=== PATIENT | male | born 1955 | race Caucasian/White ===

== ENCOUNTER 2021-07-22 11:14 | Outpatient (REF) | payer MEDICARE, SELFPAY ==
[2021-07-22 13:27] LABS: Rheumatoid Factor < 15.0 IU/mL (<15.0)
[2021-07-22 13:28] LABS: Erythrocyte Sedimentation Rate 7 MM/HR (0-15)
[2021-07-22 13:54] LABS: Syphilis Screen Nonreactive (Nonreactive)
[2021-07-23 09:25] LABS: Lyme Abs Screen <0.90 index
[2021-07-23 22:25] LABS: IgA 206 mg/dL (70-320); IgG 937 mg/dL (600-1540); IgM 74 mg/dL (50-300)
== END 2021-07-22 11:15 | disposition home or self-care (01) ==
LOC: HO.LAB 11:14
PROVIDERS: PCP Family Medicine; Visit Provider Psychiatry & Neurology Neurology
DX: G62.9 Polyneuropathy, unspecified (principal)
CPT/HCPCS: 36415; 82784; 85652; 86334; 86431; 86617; 86618; 86780

== ENCOUNTER 2021-08-04 09:29 | Day surgery (SDC) | payer MEDICARE, SELFPAY ==
[2021-08-04] VITALS (7 sets, daily range): BP systolic 160–179; BP diastolic 89–100; PULSE 66–84; RESP 16–18; TEMP 36.3–36.6; O2SAT 95–98; BMI 37.1
--- NOTE | ~2021-08-04 | FL_ITS ---
EXAMINATION: XR LUMBAR PUNCTURE CLINICAL INFORMATION: Peripheral neuropathy COMPARISON: None TECHNIQUE/FINDINGS: Procedure and risks and benefits including bleeding, infection and headache were discussed with the patient and informed consent was obtained. The patient was positioned in the prone position. The left back was prepped and draped in the usual sterile fashion. The skin and soft tissues were anesthetized with 1% lidocaine plain. Left-sided interlaminar access to the spinal canal at the L3-L4 level was obtained using a 22-gauge spinal needle. Opening pressure was 15 cm of water. 8 mL of CSF fluid was removed. Initial tube demonstrated slightly blood-tinged fluid. Later tubes were clear. FLUOROSCOPY TIME: 0.5 minutes DOSE AREA PRODUCT: 6 marcelino per centimeter squared. Total dose 29 mGy. 1 saved fluoroscopic image. FL/FL guided lumbar puncture LP IMPRESSION: Fluoroscopy-guided lumbar puncture.
[2021-08-04 09:58] LABS: MANUAL DIFF FLAG NO
[2021-08-04 09:59] LABS: Basophils Percent Auto 0.5 % (0-2); Eosinophils Absolute Auto 0.2 X10*3/uL (0.0-0.4); Eosinophils Percent Auto 2.5 % (0-4); Hematocrit 45.9 % (42-52); Hemoglobin 15.1 g/dl (14.0-18.0); Lymphocytes Absolute Auto 1.8 X10*3/uL (1.2-4.9); Lymphocytes Percent Auto 29.6 % (20-40); Mean Corpuscular HGB Conc 32.9 g/dl (31.0-36.0); Mean Corpuscular Volume 91.1 fL (80-98); Mean Platelet Volume 9.6 fL (9.4-12.4); Monocytes Absolute Auto 0.6 X10*3/uL (0.1-1.2); Monocytes Percent Auto 10.1 % (2-11); Neutrophils Absolute Auto 3.4 X10*3/uL (2.0-8.3); Neutrophils Percent Auto 57.3 % (45-73); Platelet Count 220 X10*3/uL (160-400); Red Blood Count 5.04 X10*6/uL (4.60-5.80); Red Cell Distribution Width 14.2 % (11.0-16.0); White Blood Count 5.9 X10*3/uL (4.8-10.8)
[2021-08-04 10:07] LABS: Prothrombin Time 11.6 SEC (9.9-13.0)
[2021-08-04 10:09] LABS: Partial Thromboplastin Time 36.7 SEC (24.1-38.0)
[2021-08-04 13:26] LABS: CSF Appearance Bloody; CSF Tube # 1
[2021-08-04 13:32] LABS: Oligoclonal Serum Yes
[2021-08-04 13:37] LABS: Glucose CSF 57 mg/dL; Total Protein CSF 52.7 mg/dL (15-45)
[2021-08-04 14:13] LABS: Appearance CSF CLEAR
[2021-08-04 14:14] LABS: CSF Monos 10 %; CSF Tube # 4; Color CSF COLORLESS; Lymphocytes CSF 70 %; Neutrophils CSF 20 %; Red Blood Cell CSF 413 MM*3; White Blood Cell CSF 2 MM*3
--- NOTE | 2021-08-04 14:20 | HO.RADPN ---
RADIOLOGY Narrative Narrative: LP performed using 22g spinal needle at L3/L4. Opening pressure is 15 cm h2o. 8 mL of csf fluid removed.
[2021-08-08 22:02] LABS: Albumin 4.4 g/dL (3.2-4.6); Albumin, CSF 30.1 mg/dL (8.0-42.0); IgG 949 mg/dL (600-1540); IgG Synthesis Rate -3.4 mg/24 h (-9.9-3.3); IgG, CSF 2.9 mg/dL (0.8-7.7)
== END 2021-08-04 14:34 | disposition home or self-care (01) ==
PROVIDERS: Radiology Diagnostic Radiology; PCP Family Medicine; Visit Provider Psychiatry & Neurology Neurology
PROC: 009U3ZZ Drainage of Spinal Canal, Percutaneous Approach (ICD-10-PCS; CPT 62270; principal; 2021-08-04 11:00)
DX: G62.9 Polyneuropathy, unspecified (principal); M21.379 Foot drop, unspecified foot; I10 Essential (primary) hypertension; Z86.16 Personal history of COVID-19; Z79.899 Other long term (current) drug therapy
CPT/HCPCS: 36415; 62328; 82042; 82945; 83916; 84157; 85025; 85610; 85730; 87015; 87070; 87205; 89051

== ENCOUNTER 2021-10-29 10:00 | Outpatient (RCR) | payer MEDICARE, SELFPAY | END 2021-10-29 15:08 | disposition home or self-care (01) | LOC: HO.PT 10:00 | PROVIDERS: PCP Family Medicine; Visit Provider Psychiatry & Neurology Neurology | DX: G62.9 Polyneuropathy, unspecified (principal) | CPT/HCPCS: 97110; 97112; 97140; 97161; 97530 ==

== ENCOUNTER 2024-12-03 07:38 | Emergency (ER) | payer MEDICARE, SELFPAY ==
--- NOTE | ~2024-12-03 | CT_ITS ---
EXAMINATION: CT ABDOMEN AND PELVIS WITHOUT CONTRAST CLINICAL INFORMATION: Right-sided flank pain. COMPARISON: None available. TECHNIQUE: Multidetector volumetric imaging was performed from the superior aspect of the liver through the pubic symphysis. Sagittal and coronal reformatted images were obtained on the technologist's workstation. This CT examination was performed using dose optimization techniques as appropriate, variously including the following: *Automated exposure control *Adjustment of mA and/or kV according to patient size (this includes techniques or standardized protocols for targeted exams where dose is matched to indication/reason for exam; i.e. extremities or head) *Use of iterative reconstruction technique [id number] FINDINGS: LUNG BASES: There is bibasilar atelectasis and/or scarring. Mild emphysema is noted. The heart size is normal. Mild coronary artery calcification is present. LIVER, GALLBLADDER, AND BILIARY TREE: The liver is normal in size, shape, and diffusely attenuated. No focal hepatic lesion or biliary ductal dilatation is present. The gallbladder is unremarkable with no evidence of radiopaque gallstones, gallbladder wall thickening, or obvious pericholecystic inflammatory changes. PANCREAS: Unremarkable. SPLEEN: Unremarkable. ADRENAL GLANDS: Unremarkable. KIDNEYS AND URETERS: The kidneys are normal in size, lobulated contour, and normal attenuation. No hydronephrosis, hydroureter, or calculi seen. No perinephric stranding. BLADDER: Unremarkable. GASTROINTESTINAL TRACT: Scattered stool, diverticuli and gas seen throughout the colon without distention. The appendix is normal caliber. The small bowel loops in the ileocecal junction appear normal. ABDOMINAL WALL: No significant hernia is appreciated. LYMPH NODES: Normal. VASCULAR: Unremarkable. PELVIC VISCERA: Unremarkable. OSSEOUS STRUCTURES: There is mild degenerative disc changes L4-5 disc level with ventral spondylosis lower dorsal and lower lumbar spine. No aggressive lytic or sclerotic process seen. There are bilateral hip prosthesis. CT/CT abdomen pelvis wo IV con IMPRESSION: Mild constipation. Scattered colonic diverticulosis. No diverticulitis or obstruction. Fleischner guidelines were followed. Electronically signed by: Rajeev Miller MD 12/03/2024 09:31 AM [facility]
[2024-12-03 07:47] VITALS: BP 125/71; BP 152/70; PULSE 76; PULSE 93; RESP 14; TEMP 36.8; O2SAT 94; O2SAT 99; BMI 36.3
[2024-12-03 07:54] VITALS: BP 125/71; PULSE 93; RESP 14; TEMP 36.8; O2SAT 94
--- NOTE | 2024-12-03 08:13 | ED_ITS ---
HPI - Abdominal Pain General Chief Complaint: Abdominal Pain Stated Complaint: PT STS FEELS LIKE KIDNEY STONE HE HAD IN PAST Time Seen by Provider: 12/03/24 08:03 Source: patient and RN notes reviewed Mode of arrival: ambulatory Limitations: no limitations History of Present Illness ED Provider: Conchita Wolfe PA-C HPI narrative: This is a 69-year-old male, with a history of kidney stones, hypertension, and type 2 diabetes, who presents emergency department with complaints of right- sided abdominal pain. Patient reports that since yesterday he developed right- sided abdominal pain similar to the pain he has had with a kidney stone. He also reports that he has had slower urine stream. He denies any dysuria, hematuria, urinary frequency. He does experience urinary urgency. Denies any fevers. He does endorse dry heaving and nausea. He denies any chest pain. Denies any diarrhea or constipation. He states that he took 2 different types of medications this morning for pain, he believes 1 medication was with codeine, the other 1 who was a pain medication given to him from a urologist. MD elicited complaint: abdominal pain and flank pain Pertinent past history: kidney stones Onset (ago): day(s) Pain Consistency: constant Location: R flank Severity: moderate Quality: cramping and aching Radiation: R flank Migration to: no migration Exacerbating factors: nothing Relieving factors: medication Context: history of similar episodes Associated symptoms: nausea Related Data Allergies Allergy/AdvReac Type Severity Reaction Status Date / Time No Known Allergies Allergy Verified 12/03/24 07:53 Review of Systems Review of Systems Yes all other systems are reviewed and are negative Constitutional: Reports as per [facility] Social History Social History Alcohol intake: current Alcohol intake frequency: holidays/special occasions only Alcohol type: hard liquor Smoked in Last 30 Days: No Use of substances other than those prescribed or required for medical reasons: No Advance Directives: No Advance Directives Information Provided: Yes Do you have a plan to hurt others: No Plan Physical Exam ED Vital Signs: Vital Signs - 24 hr 12/03/24 07:47 12/03/24 07:54 12/03/24 09:33 Temperature 98.2 F 98.2 F Pulse Rate 93 93 Respiratory Rate 14 14 16 Blood Pressure 125/71 125/71 Pulse Oximetry 94 94 Oxygen Delivery Method Room Air Room Air 12/03/24 11:47 Temperature Pulse Rate 85 Respiratory Rate 14 Blood Pressure 111/63 Pulse Oximetry 97 Oxygen Delivery Method Room Air BMI result Body Mass Index 36.3 Const General: cooperative, comfortable and no acute distress Orientation/consciousness: patient oriented x3 Limitations: no limitations HENMT Head: Yes normal to inspection, Yes normocephalic and Yes atraumatic Ears: hearing grossly normal bilaterally General nose exam: Normal external nose present Face and sinus: Yes normal facial exam Mouth: Normal oral and palatal mucosa present, oropharynx normal and moist mucous membranes Throat: Yes posterior oropharynx normal Eyes General: appearance normal, both eyes and all related structures Eyelids: Yes eyelids normal Conjunctivae: conjunctivae normal Sclerae: sclerae normal Pupils: Equal, round and reactive pupils present EOM: EOMs intact bilaterally Neck Neck: Yes normal visual inspection, Yes full ROM and Yes no lymphadenopathy Lymphatic: no lymphadenopathy noted Chest Chest palpation & inspection: normal inspection of the chest Resp Effort & Inspection: normal respiratory effort and able to speak in complete sentences Auscultation: clear to auscultation bilaterally, no crackles, no rales, no rhonchi and no wheezes Cardio Rate: regular rate Rhythm: regular rhythm Heart sounds: S1 normal heart sound present and S2 normal heart sound present GI Other: Soft, with tenderness palpation in the right upper and right lower quadrant, no rebound or guarding. Inspection: Yes normal to inspection General: Yes no CVA tenderness Back/Spine/Pelvis Back: no CVA tenderness Skin General skin exam: no rashes or lesions noted Trauma: no lacerations or abrasions Wounds: no wounds Neuro General: patient oriented x3 and moves all extremities Cranial nerves: Yes Equal, round and reactive pupils present Extrem General: Yes normal to inspection Right upper extremity: normal to inspection Left upper extremity: normal to inspection Right lower extremity: normal to inspection Left lower extremity: normal to inspection Course Reevaluation(s) Reevaluation #1: CT scan returns, revealing mild constipation, scattered colonic diverticulosis, no diverticulitis or obstruction. Does have mild degenerative changes in the L4-L5 disc region, however no evidence of hydronephrosis, hydroureter, or calculi seen. No perinephric stranding. Still awaiting urine sample. Time: 10:14 Reevaluation #2: Urine is not infected. Postvoid reveals that patient is not retaining. Abdomen remains to be comfortable. Time: 12:59 Reevaluation #3: Patient's overall workup today is reassuring. Unclear what is causing his abdominal pain, and pain has not returned. Patient is feeling much better, given strict return precautions. He understands and agrees and agrees with plan. Patient stable for discharge. Time: 13:27 Medical Decision Making Medical Decision Making [facility] Narrative: This is a 69-year-old male who presents emergency department with concerns for right-sided abdominal pain for the last day. On arrival, vital signs within normal limits. He is speaking in full sentences under no acute distress. Patient has a history of kidney stones and states that his symptoms feel similar. Abdomen is soft, with mild tenderness palpation in the right upper and lower quadrant, no rebound or guarding. He does report that he took 2 medications, 1 with codeine, the other 1 possibly Toradol. Will medicate with morphine, and Zofran. Will also obtain blood work, EKG, CT abdomen and pelvis. Differential Diagnosis Differential Diagnoses: The differential diagnosis associated with the presentation includes Obstructive uropathy, acute cystitis, pyelonephritis, gastritis, gastroenteritis Admission/Observation Consideration of admission/observation: Escalation of care including admission/observation considered Lab Data [facility] Lab Attestation statement: I reviewed the patient's lab results. 12/03/24 08:43 12/03/24 08:43 Labs: Lab Results 12/03/24 12/03/24 12/03/24 Range/Units 08:43 12:16 12:34 WBC 3.2 L (4.8-10.8) X10*3/uL RBC 5.38 (4.60-5.80) X10*6/uL Hgb 15.7 (14.0-18.0) g/dl Hct 45.6 (42.0-52.0) % MCV 84.8 (80.0-98.0) fL MCH 29.2 (27.0-33.0) pg MCHC 34.4 (31.0-36.0) g/dl RDW 13.3 (11.0-16.0) % Plt Count 151 L (160-400) X10*3/uL MPV 8.9 L (9.4-12.4) fL Immature Gran % (Auto) 0.3 (0.0-0.4) % Neut % (Auto) 81.4 H (45-73) % Lymph % (Auto) 10.1 L (20-40) % [place] % (Auto) 7.9 (2-11) % Eos % (Auto) 0.0 (0-4) % Baso % (Auto) 0.3 (0-2) % Lymph # (Auto) 0.3 L (1.2-4.9) X10*3/uL [place] # (Auto) 0.3 (0.1-1.2) X10*3/uL Eos # (Auto) 0.0 (0.0-0.4) X10*3/uL Baso # (Auto) 0.0 (0.0-0.2) X10*3/uL Abs Immat Gran (auto) 0.01 (0.00-0.03) X10*3/uL Absolute Neuts (auto) 2.6 (2.0-8.3) x10*3/uL Absolute Nucleated RBC 0.000 (0.0-0.012) X10*3/uL Nucleated RBC % (auto) 0.0 (0.0-0.2) /100WBC Sodium 133 L (135-145) mmol/L Potassium 3.7 (3.3-5.1) mmol/L Chloride 105 (96-108) mmol/L Carbon Dioxide 19 L (22-29) mmol/L Anion Gap 13 (12-20) BUN 38 H (9-16) mg/dL Creatinine 1.20 (0.5-1.4) mg/dL Estim Creat Clear Calc 88.3 Estimated GFR 60 Random Glucose 147 H (60-115) mg/dL Calcium 8.1 L (8.4-10.2) mg/dL Magnesium 1.8 (1.6-2.6) mg/dL Total Bilirubin 0.8 (0.0-1.0) mg/dL Direct Bilirubin 0.4 (0.0-0.5) mg/dL AST 115 H (5-37) U/L ALT 97 H (0-40) U/L Alkaline Phosphatase 82 (39-117) U/L Troponin I High Sens < 2.7 < 2.7 (<3.5-35.0) ng/L Total Protein 6.8 (6.5-8.0) g/dL Albumin 3.8 (3.5-5.0) g/dL Lipase 38 (8-78) U/L Urine Color Dark Yellow Urine Appearance Clear Urine pH 6.0 (5.0-9.0) Ur Specific [place] >= 1.030 H (1.005-1.025) Urine Protein 30 (1+) H (Neg-Trace) mg/dL Urine Glucose (UA) Negative (Negative) mg/dL Urine Ketones Negative (Negative) mg/dL Urine Blood Negative (Negative) Urine Nitrite Negative (Negative) Ur Leukocyte Esterase Negative (Negative) Urine RBC 0-2 (0-2) /HPF Urine WBC 0-5 (0-5) /HPF Ur Squamous Epith Cells 0-2 (0-2) /HPF Urine Bacteria None Seen (None Seen) Hyaline Casts 6-10 (0-2) /LPF Influenza Type A (PCR) NEGATIVE (Negative) Influenza Type B (PCR) NEGATIVE (Negative) RSV RNA Qual (PCR) NEGATIVE (Negative) SARS-CoV-2 RNA (RT-PCR) NEGATIVE (Negative) Radiology Impression Discussion of test interpretation with radiology: I have reviewed the radiologist's reading. External Record Review External record reviewed: Inpatient record, Office record, Outpatient record, Prior outpatient labs, Prior outpatient radiology, Primary care record and Outside ED record Medications Administered Discontinued Medications Generic Name Dose Route Start Last Admin Trade Name Freq PRN Reason Stop Dose Admin Sodium Chloride 1,000 mls @ 999 mls/hr 12/03/24 11:54 12/03/24 11:58 Ns IV 12/03/24 12:54 999 mls/hr .Q1H1M ONE Administration Morphine Sulfate 4 mg 12/03/24 08:21 12/03/24 09:33 Morphine Sulfate 4 Mg/Ml Cartridge IVPUSH 12/03/24 08:22 4 mg ONCE ONE Administration Protocol Ondansetron HCl 4 mg 12/03/24 08:21 12/03/24 09:33 Ondansetron Hcl 4 Mg/2 Ml Vial IVPUSH 12/03/24 08:22 4 mg ONCE ONE Administration Discharge Plan Discharge Clinical Impression: Abdominal pain Patient Disposition: Home, Self-Care Instructions: Acute Abdominal Pain (ED) Additional Instructions: You were seen in the emergency department due to abdominal pain. Your workup today was reassuring. Please drink plenty of fluids get plenty of rest. Your urine does not appear to be infected. Please follow-up with your primary care physician regarding this visit. Your CT scan does not show any kidney stones. You do have mild constipation. If any new or worsening symptoms occur including but not limited to severe chest pain, severe abdominal pain, shortness of breath, please seek emergent care. Print Language: Tajik
--- OUTSIDE RECORDS SUMMARY | 2024-12-03 08:21 | XMS_ITS | Continuity of Care Document ---
Author Organization [facility] Galindo Nathan lt Address [address] [place] [address]- Care Team Providers Care Director Of Operations For Therapy Name Role Phone Kristina LY, Eugene Carter Primary Care Physician [phone] Encounter [facility] Date(s): 10/22/24 - 11/21/24 [facility] Adult [address] [place] [address]- Referring Physician: Lux Hensley Encounter Type: Triage Allergies, Adverse Reactions, Alerts No Known Allergies Immunizations Given and Recorded Vaccine Date Status Refusal Reason influenza virus vaccine, inactivated 1 10/19/23 Gi selina influenza virus vaccine, inactivated 09/08/21 Give n influenza virus vaccine, inactivated 2 09/25/20 Gi selina influenza virus vaccine, inactivated 09/04/19 Give n influenza virus vaccine, inactivated 10/02/18 Give n influenza virus vaccine, inactivated 3 08/29/17 Gi selina influenza virus vaccine, inactivated 09/24/16 Brett rded influenza virus vaccine, inactivated 12/05/15 Brett rded pneumococcal 23-valent vaccine 4 04/08/22 Given SARS-CoV-2 (COVID-19) mRNA BNT-162b2 vac 12/15/21 Recorded SARS-CoV-2 (COVID-19) mRNA BNT-162b2 vac 03/11/21 Given SARS-CoV-2 (COVID-19) mRNA BNT-162b2 vac 02/18/21 Given pneumococcal 13-valent vaccine 11/19/20 Given tetanus/diphtheria/pertussis, acel(Tdap) 08/29/17 Given 1Result Comment: questionaire complete 2Result Comment: [facility]-[id number] 3Result Comment: [08/29/2017] [facility] [id number] 4Result Comment: [id number] Medications aspirin 81 mg oral tablet, chewable 81 mg, 1, tablet, By Mouth, Daily, # 30 tablet, Refills 0, Tot. Refills 0, Maintenance, 03/26/24 6:14:00 PM EDT, Do Not Route, Partial fill upon patient request if the prescription is for a schedule II opioid drug. Start Date: 03/26/24 Status: Ordered Quantity: 30.0 Unit: tablet Repeat number: 1 atorvastatin 20 mg oral tablet 1 tablet, By Mouth, Daily at bedtime, # 90 tablet, 1 Refills, Maintenance, 08/24/24 12:59:00 PM EDT,[id number], 196, cm, 06/28/24 12:55:00 EDT, Height, 141.7, kg, 05/14/24 8:24:00 EDT, Dry Weight Start Date: 08/24/24 Status: Ordered Quantity: 90.0 Unit: tablet Repeat number: 1 hydrochlorothiazide-lisinopril 25 mg-20 mg oral tablet See Instructions, TAKE 1 TABLET BY MOUTH EVERY DAY, # 90 tablet, 1 Refills, Maintenance, 08/10/24 4:22:00 PM EDT, [facility]/pharmacy #[id number], 90, TAKE 1 TABLET BY MOUTH EVERY DAY, 196, cm, 06/28/24 12:55:00 EDT, Height, 141.7, kg, 05/14/24 8:24:00 EDT, Dry Weight Start Date: 08/10/24 Status: Ordered Quantity: 90.0 Unit: tablet Repeat number: 2 LORazepam 1 mg oral tablet 1 tablet = 1 mg, By Mouth, Daily at bedtime, PRN Insomnia, # 30 tablet, 5 Refills, Acute 02/07/25 4:00:00 PM EDT, 08/10/24 4:00:00 PM EDT, [facility]/pharmacy #[id number], Partial fill upon patient request if the prescription is for a schedule II opioid drug., 196, cm, 06/28/24 12:55:00 EDT, Height, 141.7, kg, 05/14/24 8:24:00 EDT, Dry Weight Start Date: 08/10/24 Stop Date: 3/13/25 Status: Ordered Quantity: 30.0 Unit: tablet Repeat number: 6 metoprolol 25 mg oral tablet, extended release 25 mg, 1, tablet, By Mouth, Daily, # 90 tablet, Refills 3, Tot. Refills 3, Maintenance, 03/26/24 6:15:00 PM EDT, [id number] Partial fill upon patient requestif the prescription is for a schedule II opioid drug., 196, cm, 03/15/24 13:04:00 EDT, Height, 138,kg, 02/17/24 13:00:00 EDT, Dry Weight Start Date: 03/26/24 Status: Ordered Quantity: 90.0 Unit: tablet Repeat number: 4 Mounjaro 5 mg/0.5 mL subcutaneous solution = 5 mg, Subcutaneous Injection, Every week, For type 2 DM, A1c 6.5%; rotate injection sites, # 4 each, 3 Refills, Maintenance, 10/05/24 10:24:00 AM EST, Solution, [facility]/pharmacy #[id number], Partial fill uponpatient request if the prescription is for a schedule II opioid drug., 196, cm, 09/12/24 15:22:00 EDT, Height, 141.7, kg, 05/14/24 8:24:00 EDT, Dry Weight Start Date: 10/05/24 Status: Ordered Quantity: 4.0 Unit: each Repeat number: 4 nitroglycerin 0.3 mg sublingual tablet 1 tablet = 0.3 mg, Sublingual, Every 5 minutes, PRN as needed for chest pain, not to exceed 3 doses/15 min--if pain persists, seek medical attention, # 100 tablet, 2 Refills, Maintenance, 04/02/24 10:10:00 AM EDT, Tablet, [facility]/pharmacy #[id number], Partial fill upon patient request if the prescription is for a schedule II opioid drug., 196, cm, 04/02/24 10:02:00 EDT, Height, 138, kg, 02/17/24 13:00:00 EDT, Dry Weight Start Date: 04/02/24 Status: Ordered Quantity: 100.0 Unit: tablet Repeat number: 3 Zepbound 2.5 mg/0.5 mL subcutaneous solution = 2.5 mg, Subcutaneous Injection, Every week, rotate injection sites, # 4 each, 3 Refills, Maintenance, 10/29/24 4:22:00 AM EST, [facility], [id number], Partial fill upon patient request if the prescription is for a schedule II opioid drug., 196, cm, 09/12/24 15:22:00 EDT, Height, 141.7, kg, 05/14/24 8:24:00 EDT, Dry Weight Start Date: 10/29/24 Status: Ordered Quantity: 4.0 Unit: each Repeat number: 4 Zepbound 2.5 mg/0.5 mL subcutaneous solution = 2.5 mg, Subcutaneous Injection, Every week, rotate injection sites, # 4 each, 2 Refills, Maintenance, 09/12/24 3:37:00 PM EDT, [facility], [id number], Partial fill upon patient request if theprescription is for a schedule II opioid drug., 196, cm, 09/12/24 15:22:00 EDT, Height, 141.7, kg, 05/14/24 8:24:00 EDT, Dry Weight Start Date: 09/12/24 Status: Ordered Quantity: 4.0 Unit: each Repeat number: 3 Problem List Condition Confirmation Course Effective Dates Status H ealth Status Informant ADHD (attention deficit hyperactivity disorder) Confirmed Active Cervical radiculopathy Confirmed Active COVID-19 virus infection Confirmed Active Hyperlipidemia Confirmed Active Hypertension Confirmed Active Insomnia Confirmed Active Kidney stone Confirmed Active Obesity Confirmed Active Osteoarthritis Confirmed Active Sciatica of right side Confirmed Active Severe obesity (BMI 35.0-39.9) with comorbidity Confirmed Active Social History Social History Type Response Smoking Status Former smoker, quit more than 30 days ago entered on: 02/06/24 Sex Sex Representation Male (finding) Patient Care team information Care Team Personnel Name: Bita Walker RN Position: [facility] RN Member Role: Primary Care Nurse Name: Maria Del Carmen Gordillo RN Position: [facility] RN Member Role: Primary Care Nurse Name: Yenny Morales RN Position: [facility] RN Member Role: Primary Care Nurse Name: Lyly Piña RN Position: [facility] [place] Nurse Member Role: Primary Care Nurse Name: Cathy Romo RN Position: [facility] RN Supv Member Role: Primary Care Nurse Name: Lobo Smith RN Position: [facility] RN Member Role: Primary Care Nurse Name: Eugene Acevedo MD Position: [facility] Physician - Primary Care Member Role: PCP Address: [address] [place] [address]- Telecom: Name: Lux Hensley Position: [facility] Outreach Member Role: [employer] Physician Name: Sharifa Shell RN Position: [facility] RN Member Role: Primary Care Nurse Name: Nia Garcia RN Position: [facility] OB RN Member Role: Primary Care Nurse Name: Magdi Kumar RN Position: [facility] SN RN Member Role: Primary Care Nurse Care Team Related Persons Name: DARIEL MAK Insurance Providers Guarantor name: [facility] Health Plan Information #: 1 Payer: MEDICARE PART B OUTPT Member Number: NA Policy Number: NA Group Number: NA Health Plan Information #: 2 Payer: MEDEX Member Number: NA Policy Number: NA Group Number: NA
--- OUTSIDE RECORDS SUMMARY | 2024-12-03 08:21 | XMS_ITS | Continuity of Care Document ---
Author Organization [facility] Bill Medley Nathan lt Address [address] [place] [address]- Care Team Providers Care Lockmaker Name Role Phone Kristina LY, Eugene Carter Primary Care Physician Encounter [facility] Date(s): 10/11/24 - 11/10/24 [facility] Bill Medley Adult [address] [place] [address]- Encounter Type: Triage Allergies, Adverse Reactions, Alerts [...] Given 1Result Comment: questionaire complete 2Result Comment: [facility]-[id number] 3Result Comment: [08/29/2017] [facility] [id number] 4Result Comment: [id number] Medications aspirin 81 mg oral tablet, chewable [...] Refills, Maintenance, 08/24/24 12:59:00 PM EDT[id number], 196, cm, 06/28/24 12:55:00 EDT, Height, 141.7, kg, 05/14/24 8:24:00 EDT, Dry Weight Start Date: 08/24/24 Status: Ordered Quantity: 90.0 Unit: tablet Repeat number: 1 hydrochlorothiazide-lisinopril 25 mg-20 mg oral tablet See Instructions, TAKE 1 TABLET BY MOUTH EVERY DAY, # 90 tablet, 1 Refills, Maintenance, 08/10/24 4:22:00 PM EDT, [facility]/pharmacy #[id number], 90, TAKE 1 TABLET BY MOUTH [...] 4:00:00 PM EDT, 08/10/24 4:00:00 PM EDT, [facility]/pharmacy #[id number], Partial fill upon patient request if [...] 6:15:00 PM EDT, [id number] fill upon patient requestif the [...] Refills, Maintenance, 10/05/24 10:24:00 AM EST, Solution, [facility]/pharmacy #[id number], Partial fill uponpatient request if the [...] Refills, Maintenance, 04/02/24 10:10:00 AM EDT, Tablet, [facility]/pharmacy #[id number], Partial fill upon patient request if [...] Team Personnel Name: Bita Walker RN Position: [facility] RN Member Role: Primary Care Nurse Name: Maria Del Carmen Gordillo RN Position: [facility] RN Member Role: Primary Care Nurse Name: Yenny Morales RN Position: [facility] RN Member Role: Primary Care Nurse Name: Lyly Piña RN Position: [facility] [place] Nurse Member Role: Primary Care Nurse Name: Cathy Romo RN Position: [facility] RN Supv Member Role: Primary Care Nurse Name: Lobo Smith RN Position: [facility] RN Member Role: Primary Care Nurse Name: Eugene Acevedo MD Position: [facility] Physician - Primary Care Member Role: PCP Address: [address] [place] [address]- Telecom: Name: Lux Hensley Position: [facility] Outreach Member Role: [employer] Consult[employer] Physician Name: Sharifa Shell RN Position: [facility] RN Member Role: Primary Care Nurse Name: Nia Garcia RN Position: [facility] OB RN Member Role: Primary Care Nurse Name: Magdi Kumar RN Position: [facility] SN RN Member Role: Primary Care Nurse Care Team Related Persons Name: DARIEL MAK Insurance Providers Guarantor name: [facility] Health Plan Information #: 1 Payer: MEDICARE PART B OUTPT Member Number: NA Policy Number: NA Group Number: NA Health Plan Information #: 2 Payer: MEDEX Member Number: NA Policy Number: NA Group Number: NA
--- OUTSIDE RECORDS SUMMARY | 2024-12-03 08:21 | XMS_ITS | Patient Health Record ---
Author Organization [facility] Address [address] [place] [address] Care Team Providers Care Processing Manager Name Role Phone Eugene Acevedo MD Primary Care Provider Unava ilable Black, Nikki Unavailable [phone] Allergies No Known Allergies Results Component Value Reference Range Notes HEMOGLOBIN A1C (GLYCOHEMOGLO BIN) Reviewed date:09/17/2024 01:22:36 PM Interpretation: Performing Lab: Notes/Report: TOTAL HEMOGLOBIN (HGBA1C) 6.5 Reason For Referral No Information Medications Medication SIG (Take, Route, Frequency, Duration) Notes Start Date End Date Status Terbinafine HCl 250 MG 1 tablet Orally O nce a day for 7 days then stop for 3 weeks repeat cycle for 90 days 04/12/2022 Not-Taking Amoxicillin 500 MG 1 capsule Orally Not-Taking Extra Depth Orthopedic Shoes (1 Pair) with Customized Heat Molded Multidensity Innersoles (3 Pair) as directed Dx: NIDDM (E11.9), Hammertoe Foot Deformity (M20.41,M20.42), Preulcerative Skin Lesion(s) (L85.1) 09/17/2024 Active Ciclopirox Olamine 0.77 % 1 application to affected area Externally Twice a day for 30 days 03/30/2018 Not-Taki vinny Physical Therapy . . . 2-3x/week for 3- 4 weeks Active LORazepam 2 MG 1 tablet at bedtime as needed Orally Once a day Active Lisinopril 20 MG 1 tablet Orally Once a day Active Atorvastatin Calcium 20 MG 1 tablet Orally Once a day Active Social History Tobacco Use: Social History Observation Description Date Details (start date - stop date) Former Smoker NA - NA Tobacco Use/Smoking Question Answer Notes Are you a: former smoker Additional Findings: Tobacco Non-User Current no n-smoker Alcohol Screen Question Answer Notes Did you have a drink contain ing alcohol in the past year? Yes How often did you have a dri nk containing alcohol in the past year? 2 to 4 times a month (2 points) Points 2 Interpretation Negative Tobacco use other than smoking: Question Answer Notes Are you an other tobacco user? No Problems Problem Type SNOMED Code ICD Code Onset Dates Problem Status W/U Status Risk Notes Problem Acquired hammer toe of right foot (726701829509291 5) Other hammer toe(s) (acquired), right foot (M20.41) Active confirmed Problem Acquired hammer toe of left foot (343824863354882 3) Other hammer toe(s) (acquired), left foot (M20.42) Active confirmed Problem Type II diabetes mellitus without complication (152261083) Type 2 diabetes mellitus without complications (E11.9) Active confirmed Problem 30863115 Unsteady gait (R26.81) Active confirmed Problem Essential hypertension (52792218) Essential hypertension (I10) Active confirmed Vital Signs Blood pressure diastolic 71 mm Hg 09/17/2024 Height 6ft 5in in 09/17/2024 Blood pressure systolic 111 mm Hg 09/17/2024 Weight 308 lbs 09/17/2024 BMI 36.52 kg/m2 09/17/2024 Procedures Procedure Date Ordered Date Performed Result Body Sit e 90379-LXVDBDD NAIL, 1-5 03/19/2024 N/A 50315-HBLWVMK NAIL, 1-5 09/17/2024 N/A Encounters Encounter Location Date Provider Diagnosis [facility] [address] [address] 03/19/2024 Nikki Black Tinea unguium B35.1 ; Foot drop, left M21.372 ; Pain in left toe(s) M79.675 ; Pain in right toe(s) M79.674 ; Foot drop, right foot M21.371 and Unsteady gait R26.81 [facility] [address] [address] 09/17/2024 Nikki Black Tinea unguium B35.1 ; Foot drop, left M21.372 ; Pain in left toe(s) M79.675 ; Pain in right toe(s) M79.674 ; Foot drop, right foot M21.371 ; Unsteady gait R26.81 ; Type 2 diabetes mellitus without complications E11.9 ; Other hammer toe(s) (acquired), right foot M20.41 and Other hammer toe(s) (acquired), left foot M20.42 Assessments Encounter Date Diagnosis (ICD Code) Assessment Notes Treatment Notes Treatment Clinical Notes Section Notes 03/19/2024 Tinea unguium (ICD-10 - B35.1) 09/17/2024 Tinea unguium (ICD-10 - B35.1) 03/19/2024 Foot drop, left (ICD-10 - M21.372) 03/19/2024 Pain in left toe(s) (ICD-10 - M79.675) 09/17/2024 Pain in left toe(s) (ICD-10 - M79.675) 09/17/2024 Foot drop, left (ICD-10 - M21.372) 09/17/2024 Pain in right toe(s) (ICD-10 - M79.674) 03/19/2024 Pain in right toe(s) (ICD-10 - M79.674) 03/19/2024 Foot drop, right foot (ICD-10 - M21.371) 09/17/2024 Foot drop, right foot (ICD-10 - M21.371) 09/17/2024 Unsteady gait (ICD-10 - R26.81) 03/19/2024 Unsteady gait (ICD-10 - R26.81) 09/17/2024 Type 2 diabetes mellitus without complications (ICD-10 - E11.9) 09/17/2024 Other hammer toe(s) (acquired), right foot (ICD-10 - M20.41) Patient Educated with: DIABETIC FOOT CARE INSTRUCTIONS.p df (DIABETIC FOOT CARE INSTRUCTIONS.p df) 09/17/2024 Other hammer toe(s) (acquired), left foot (ICD-10 - M20.42) Plan Of Treatment Pending Test Test Name Order Date [id number]-GUOQZRD NAIL, 6 OR MORE 04/12/2022 15138-BBJXNWN NAIL, 6 OR MORE 11/01/2022 55907-PZSKBEW NAIL, 6 OR MORE 03/10/2023 31901-PKTCTOG NAIL, 6 OR MORE 09/15/2023 02089-EFPFEQY NAIL, 1-5 03/19/2024 72874-VXTESYE NAIL, 1-5 09/17/2024 Next Appt Details Provider Name:Nikki Vigil , 03/18/2025 01:00:00 PM, [address] [place], [address], Insurance Providers Payer Name Payer Address Payer Phone Subscriber Number Group Number Insured Name Patient Relationship to Insured Coverage Start Date Coverage End Date Medicare National [employer] [address] [place] [address] [id number] Nicolas Cano Self - patient is the insured [employer] Blue Shield [address] [place] [address] [phone] [id number] Nicolas Cano Self - patient is the insured Medical (General) History Medical History History ICD Code Back,Hip,and Knee pain Gall bladder problems Measles Mumps Chicken pox Joint implants/screws CAD (Cholesterol) covid-19 High blood pressure Diabetic Surgical History Surgery Date(Month/Year) 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
--- OUTSIDE RECORDS SUMMARY | 2024-12-03 08:21 | XMS_ITS | Continuity of Care Document ---
Author Organization [facility] Galindo Nathan lt Address [address] [place] [address]- Care Team Providers Care Skein Winder Name Role Phone Kristina LY, Eugene Carter Primary Care Physician [phone] Encounter [facility] Date(s): 10/16/24 - 11/15/24 [facility] Bill [place] Adult [address] [place] [address]- Encounter Type: Triage Allergies, Adverse Reactions, Alerts [...] Given 1Result Comment: questionaire complete 2Result Comment: [facility]-[id number] 3Result Comment: [08/29/2017] [facility] [id number] 4Result Comment: [id number] Medications aspirin 81 mg oral tablet, chewable [...] Refills, Maintenance, 08/24/24 12:59:00 PM EDT[facility], 196, cm, 06/28/24 12:55:00 EDT, Height, 141.7, kg, 05/14/24 8:24:00 EDT, Dry Weight Start Date: 08/24/24 Status: Ordered Quantity: 90.0 Unit: tablet Repeat number: 1 hydrochlorothiazide-lisinopril 25 mg-20 mg oral tablet See Instructions, TAKE 1 TABLET BY MOUTH EVERY DAY, # 90 tablet, 1 Refills, Maintenance, 08/10/24 4:22:00 PM EDT, [facility]/pharmacy #[id number], 90, TAKE 1 TABLET BY [...] 4:00:00 PM EDT, 08/10/24 4:00:00 PM EDT, [id number], Partial fill upon patient request if the prescription is for a schedule II opioid drug., 196, cm, 06/28/24 12:55:00 EDT, Height, 141.7, kg, 05/14/24 8:24:00 EDT, Dry Weight Start Date: 08/10/24 Stop Date: 02/07/25 Status: Ordered Quantity: 30.0 Unit: tablet Repeat number: 6 metoprolol 25 mg oral tablet, extended release 25 mg, 1, tablet, By Mouth, Daily, # 90 tablet, Refills 3, Tot. Refills 3, Maintenance, 03/26/24 6:15:00 PM EDT, Route to Pharmacy Electronically, [facility]/pharmacy #[id number], Partial fill upon patient requestif the [...] Refills, Maintenance, 10/05/24 10:24:00 AM EST, Solution, [facility]/pharmacy #[id number], Partial fill uponpatient request if [...] Refills, Maintenance, 04/02/24 10:10:00 AM EDT, Tablet, [facility]/pharmacy #[id number], Partial fill upon patient request [...] Team Personnel Name: Bita Walker RN Position: [facility] RN Member Role: Primary Care Nurse Name: Maria Del Carmen Gordillo RN Position: [facility] RN Member Role: Primary Care Nurse Name: Yenny Morales RN Position: [facility] RN Member Role: Primary Care Nurse Name: Lyly Piña RN Position: [facility] [place] Nurse Member Role: Primary Care Nurse Name: Cathy Romo RN Position: [facility] RN Supv Member Role: Primary Care Nurse Name: Lobo Smith RN Position: [facility] RN Member Role: Primary Care Nurse Name: Eugene Acevedo MD Position: [facility] Physician - Primary Care Member Role: PCP Address: [address] [place] [address] [place] [address]- Telecom: Name: Lux Hensley Position: [facility] Outreach Member Role: Lifetime Consulting Physician Name: Sharifa Shell RN Position: [facility] RN Member Role: Primary Care Nurse Name: Nia Garcia RN Position: [facility] OB RN Member Role: Primary Care Nurse Name: Magdi Kumar RN Position: [facility] SN RN Member Role: Primary Care Nurse Care Team Related Persons Name: DARIEL MAK Insurance Providers Guarantor name: CLAIRE JONNYANNALEE Health Plan Information #: 1 Payer: MEDICARE PART B OUTPT Member Number: NA Policy Number: NA Group Number: NA Health Plan Information #: 2 Payer: MEDEX Member Number: NA Policy Number: NA Group Number: NA
--- OUTSIDE RECORDS SUMMARY | 2024-12-03 08:21 | XMS_ITS ---
Author Organization [facility] Johnnie Medley Address [address] [place] [address] Care Team Providers Care Bore Miner Operator Name Role Phone Kristina LY, Eugene Primary Care Provider Unava ilNikki Garcia [phone] Encounters Encounter Location Date Provider Diagnosis [address] [address] 03/15/2024 Nikki Vigil Plan Of Treatment Next Appt Details Provider Name:Nikki Vigil , 03/18/2025 01:00:00 PM, [address] [place] [address], [phone], Progress Notes * Nicolas MAK DDOB:[birth year] (69 yo M)Acc No.[id number]:03/15/2024 Progress Note Patient:?Nicolas MAK Provider:?Nikki Vigil DPM :1955???Age:68 Y???Sex:Male Dung e:03/15/2024 Address:[address] [place], [place] [id number] Pcp:Eugene Acevedo MD Subjective: * Chief Complaints: * ??? * Medical History:? Objective: * Vitals:? Assessment: Plan: * Treatment: * Images: * The named appointment provid er may or may not be the originator of this progress note, and it is not deemed complete until electronically signed by the appointment provider. Sign off status: Pending * Provider:Curtis Vigil DPM Date:?2023 Generated for Porfirio casillas/Roshan/Lucía on:?12/03/2024 08:21 AM EST
--- OUTSIDE RECORDS SUMMARY | 2024-12-03 08:21 | XMS_ITS | Continuity of Care Document ---
Author Organization [facility] Bill Medley Nathan lt Address [address] [place] [address]- Care Team Providers Care Electrical Assembly Technician Name Role Phone Kristina LY, Eugene Carter Primary Care Physician Encounter [facility] Date(s): 10/09/24 - 11/08/24 [facility] Bill [place] Adult [address] [place] [address]- Encounter Type: Triage Allergies, Adverse Reactions, Alerts [...] Given 1Result Comment: questionaire complete 2Result Comment: [facility]-[id number] 3Result Comment: [08/29/2017] [facility] [id number] 4Result Comment: [id number] Medications aspirin 81 mg oral tablet, chewable [...] Refills, Maintenance, 08/24/24 12:59:00 PM EDT,[facility], 196, cm, 06/28/24 12:55:00 EDT, Height, 141.7, kg, 05/14/24 8:24:00 EDT, Dry Weight Start Date: 08/24/24 Status: Ordered Quantity: 90.0 Unit: tablet Repeat number: 1 hydrochlorothiazide-lisinopril 25 mg-20 mg oral tablet See Instructions, TAKE 1 TABLET BY MOUTH EVERY DAY, # 90 tablet, 1 Refills, Maintenance, 08/10/24 4:22:00 PM EDT, [facility]/pharmacy #[id number], 90, TAKE 1 TABLET BY [...] 4:00:00 PM EDT, 08/10/24 4:00:00 PM EDT, [facility]/pharmacy #[id number], Partial fill upon patient request [...] 6:15:00 PM EDT, [id number] Partial fill upon patient requestif [...] Refills, Maintenance, 10/05/24 10:24:00 AM EST, Solution, [facility]/pharmacy #[id number], Partial fill uponpatient request if [...] Refills, Maintenance, 04/02/24 10:10:00 AM EDT, Tablet, [facility]/pharmacy #[id number], Partial fill upon patient request [...] Team Personnel Name: Bita Walker RN Position: [facility] RN Member Role: Primary Care Nurse Name: Maria Del Carmen Gordillo RN Position: [facility] RN Member Role: Primary Care Nurse Name: Yenny Morales RN Position: [facility] RN Member Role: Primary Care Nurse Name: Lyly Piña RN Position: [facility] [place] Nurse Member Role: Primary Care Nurse Name: Cathy Romo RN Position: [facility] RN Supv Member Role: Primary Care Nurse Name: Lobo Smith RN Position: [facility] RN Member Role: Primary Care Nurse Name: Eugene Acevedo MD Position: [facility] Physician - Primary Care Member Role: PCP Address: [address] [place] [address]- Telecom: Name: Lux Hensley Position: [facility] Outreach Member Role: Lifetime Consulting Physician Name: Sharifa Shell RN Position: [facility] RN Member Role: Primary Care Nurse Name: Nia Garcia RN Position: [facility] OB RN Member Role: Primary Care Nurse Name: Magdi Kumar RN Position: [facility] SN RN Member Role: Primary Care Nurse Care Team Related Persons Name: DARIEL MAK Insurance Providers Guarantor name: [facility] Health Plan Information #: 1 Payer: MEDICARE PART B OUTPT Member Number: NA Policy Number: NA Group Number: NA Health Plan Information #: 2 Payer: [employer] Member Number: NA Policy Number: NA Group Number: NA
--- OUTSIDE RECORDS SUMMARY | 2024-12-03 08:21 | XMS_ITS ---
Author Organization [facility] Johnnie maryjo Galindo Address [address] [place] [address] Care Team Providers Care Enamel Shader Name Role Phone Eugene Acevedo MD Primary Care Provider Unava ilable Black, Nikki Unavailable [phone] Allergies No Known Allergies REASON FOR VISIT Painful Nail(s) aggrevated by shoes and causing difficulty standing/walking., Foot pain Medications Medication SIG (Take, Route, Frequency, Duration) Notes Start Date End Date Status Lisinopril 20 MG 1 tablet Orally Once a day Active LORazepam 2 MG 1 tablet at bedtime as needed Orally Once a day Active Amoxicillin 500 MG 1 capsule Orally Not-Taking Terbinafine HCl 250 MG 1 tablet Orally O nce a day for 7 days then stop for 3 weeks repeat cycle for 90 days 04/12/2022 Not-Taking Ciclopirox Olamine 0.77 % 1 application to affected area Externally Twice a day for 30 days 03/30/2018 Not-Taking Atorvastatin Calcium 20 MG 1 tablet Orally Once a day Active Physical Therapy . . . 2-3x/week for 3- 4 weeks Active Social History Tobacco Use: Social History [...] Problem Status W/U Status Risk Notes Problem [id number] Unsteady gait (R26.81) Active confirmed Vital Signs Height 6ft 5in in 03/19/2024 Weight 302 lbs 03/19/2024 BMI 35.81 kg/m2 03/19/2024 Blood pressure systolic 120 mm Hg 03/19/20 24 Blood pressure diastolic 80 mm Hg 024 Procedures Procedure Date Ordered Date Performed Result Body Sit e 70986-ZEUNRHP NAIL, 1-03/19/2024 N/A Encounters Encounter Location Date Provider Diagnosis [facility] [employer] [address] [place] [address] 03/19/2024 Nikki Vigil Tinea unguium B35.1 ; Foot drop, left M21.372 ; Pain in left toe(s) M79.675 ; Pain in right toe(s) M79.674 ; Foot drop, right foot M21.371 and Unsteady gait R26.81 Assessments Encounter Date Diagnosis (ICD Code) Assessment Notes Treatment Notes Treatment Clinical Notes Section Notes 03/19/2024 Tinea unguium (ICD-10 - B35.1) 03/19/2024 Foot drop, left (ICD-10 - M21.372) 03/19/2024 Pain in left toe(s) (ICD-10 - M79.675) 03/19/2024 Pain in right toe(s) (ICD-10 - M79.674) 03/19/2024 Foot drop, right foot (ICD-10 - M21.371) 03/19/2024 Unsteady gait (ICD-10 - R26.81) Plan Of Treatment Medication Medication Name Sig Start Date Stop Date Notes Physical Therapy . . . 2-3x/week for 3-4 weeks Pending Test Test Name Order Date 08601-[id number] NAIL, -03/19/2024 Next Appt Details Follow Up: 6 Months, Reason: Provider Name:Nikki Nguyen Musa , 03/18/2025 01:00:00 PM, [address] [place], [address], Procedure Notes * Category Sub-Category Detail Notes Debride Nails 1-5 Procedure: Nail debrideme nt performed extensively to reduce/remove overall nail length, girth, thickness, subungual debris, and necrotic tissue, by manual and electrical means through the use of a nail nipper and/or dremel, to more viable healthy nail plate or bed tissue 1-5. Silver nitrate used for any petechial bleeding as necessary. Patient chooses, no pharmaceutical tx (54968) Progress Notes * Nicolas MAK DDOB:[birth year] (68 yo M)Acc No.[id number]:03/19/2024 Progress Note Patient:?Nicolas Mak Provider:?Nikki Vigil DPM :1955???Age:68 Y???Sex:Male Dung e:03/19/2024 Address:[address] [place] [address] Pcp:Eugene Aecvedo MD Subjective: * Chief Complaints: * ???Painful Nail(s) aggrevate d by shoes and causing difficulty standing/walking.Foot pain * HPI: ???Painful Nails:?Pt States Last PCP Visit:?Date:?02/24/2024 ?Treatments:?Lamisil Oral Antifungal?.?Foot Pain:?Nature:?unsteady gait/balance.?Location:?B/L.?Duration:?, several months.?Course:?worse.?Aggrevated:?standing , walking.?Treatments:?b/l AFO's.?Severity/Quality:?moderate , severe.? * ROS:?General/Constitutional:?Nausea?denies.?Vomiting?denies.?Hunger Thirst?denies.?Loss appetite?denies.?Chills?denies.?Fatigue?denies.?Fever?denies.?Night Sweats?denies.?Unexplained weight loss?denies.?Unexplained weight gain?denies.?HEENTM:?Dentures?denies.?Dizziness?denies.?Glasses/contacts?denies.?Retinopathy?de nies.?Blurred/double vision?denies.?TMJ?denies.?Discharge/drainage?denies.?Implants?denies.?Sore throat?denies.?Dental implants?admits.?Hard of hearing ?denies.?Difficulty chewing/swallowing/speaking?denies.?Nose bleeds?denies.?Sore mouth?denies.?Respiratory:?On Oxygen?denies.?Pneumonia/pleurisy?denies.?Bronchitis?denies.?Emphysema?denies.?C oughing?denies.?Cough blood?denies.?Shortness of breath?denies.?Wheezing?denies.?Cardiovascular:?Pacemaker?denies.?MVP?denies.?WPW?denies.?CHF?denies.?Heart attack?denies.?Septal defect?denies.?Rapid beat?denies.?Chest pain ?denies.?Atrial Fib.?denies.?Murmur/Palpitations?denies.?Gastrointestinal:?Hemorrhoids?denies.?Stomach/Abdominal pain?denies.?Dark blood stool?denies.?Irritable bowel ?denies.?Constipation?denies.?Diarrhea?denies.?Hematology:?Swelling?denies.?Clots?denies.?Varicose Veins?admits.?Bruising?denies.?Bleeding problem?denies.?Genitourinary:?Blood urine?denies.?Frequent/Painfu/urination/bladder control?denies.?Kidney stones?admits.?Infection (UTI)?denies.?Nephropathy?denies.?sex trans dis (STD)?denies.?Prostate?denies.?Musculoskeletal:?Hammertoes?denies.?Bunions?denies.?Back Pain?admits.?Muscle Cramps/ Resting?denies.?Muscle cramps / walking?denies.?Generalized aches and pains?denies.?Weakness?denies.?Integ.:?Madrigal?denies.?Scars?denies.?Corns/calluses?denies.?Ingrown nails?denies.?Painful nails?denies.?Open Sores?denies.?Rashes?admits.?Neurologic:?Difficulty sleeping?admits.?Brain disorder?denies.?Numbness?denies.?Balance trouble?admits.?Confusion?denies.?Fainting/blackouts?denies.?Tingling?denies.?Tr emors?denies.? * Medical History:? * Surgical History:?right hip replacement 08/30/2014gall bladder removed 2003rotator cuff tear repair 1987Varicose Veins 2007Left hip Surgery 09/18polyp removal - Throat 06/2023Neck Operation- pinched nerve 03/01/24 * Hospitalization/Major Diagno stic Procedure:?[facility] 09/18 * Family History:?Mother: dece ased, stroke, diagnosed with Unspecified cerebral artery occlusion with cerebral infarction.?Father: .? * Social History:?Tobacco Use:?Tobacco Use/Smoking?Are you a:?former smoker ?Additional Findings: Tobacco Non-User?Current non-smoker ?Tobacco use other than smoking?Are you an other tobacco user??No ???Drugs/Alcohol:?Drugs?Have you used drugs other than those for medical reasons in the past 12 months??No ?Alcohol Screen?Did you have a drink containing alcohol in the past year??Yes ?How often did you have a drink containing alcohol in the past year??2 to 4 times a month (2 points) ?Points?2 ?Interpretation?Negative ???Miscellaneous:?Caffeine: yes, frequency:, 2-3 cups per day. ?no Children. ?no Exercise, Golf, billiards, stretching, walking. ?Marital status: . 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 * Medications:?TakingAtorvasta tin Calcium 20 MG Tablet 1 tablet Orally Once a dayLisinopril 20 MG Tablet 1 tablet Orally Once a dayLORazepam 2 MG Tablet 1 tablet at bedtime as needed Orally Once a dayTaking Atorvastatin Calcium 20 MG Tablet 1 tablet Orally Once a dayTaking Lisinopril 20 MG Tablet 1 tablet Orally Once a dayTaking LORazepam 2 MG Tablet 1 tablet at bedtime as needed Orally Once a dayNot-Taking/PRNPhysical Therapy . . . . 2-3x/weekAmoxicillin 500 MG Capsule 1 capsule Orally Terbinafine HCl 250 MG Tablet 1 tablet Orally Once a day for 7 days then stop for 3 weeks repeat cycleCiclopirox Olamine 0.77 % Cream 1 application to affected area Externally Twice a dayMedication List reviewed and reconciled with the patientNot-Taking/PRN Physical Therapy . . . . 2-3x/weekNot-Taking/PRN Amoxicillin 500 MG Capsule 1 capsule Orally Not-Taking/PRN Terbinafine HCl 250 MG Tablet 1 tablet Orally Once a day for 7 days then stop for 3 weeks repeat cycleNot-Taking/PRN Ciclopirox Olamine 0.77 % Cream 1 application to affected area Externally Twice a dayMedication List reviewed and reconciled with the patient * Allergies:?N.K.D.A.yes[Aller gies Verified] Objective: * Vitals:?Ht: 6ft 5in, Wt:302, BMI:35.81, Shoe size:14 extra wide, BP:120/80 mm Hg. * Examination: ???General Examination: ?GENERAL APPEARANCE:?good attention to hygiene, no acute distress, well developed, well nourished .?ORIENTED:?person, place, and time.?Neurological: ?SENSORY:?Neurological exam reveals intact sensorium, pain sensation normal, vibration sensation intact, pinprick sensation is normal in the lower extremities, Pt denies, anesthesia, burning, paresthesia, tingling, B/L .?TINEL'S COMPRESSION:?Negative tarsal tunnel, pilar pedis, and medial calcaneal nerves.?Vascular: ?DORSALIS PEDIS PULSE:?2/4, B/L .?POSTERIOR TIBIAL PULSE:?2/4, B/L .?CAPILLARY REFILL:?instantaneous, B/L .?TEMPERATURE GRADIENT:?within normal limits .?Orthopedic: ?MUSCLE STRENGTH:?Drop foot , B/L , , Generalized decrease in strength , B/L.?GAIT ABNORMALITY:?b/l AFO , , unstable/unsteady relating occasional difficulty with balance.?FOOT MORPHOLOGY:?Flexible, Pes Cavus structure, B/L.?DIGITAL DEFORMITIES:?Digital contracture, PIPJ, 2-5 B/L, non-reducable to push-up test, no over, nor underlapping.?Nails: ?NAILS are:?Elongated, overgrown, dystrophic, lytic, greater than 3mm thick, discolored and friable with crumbly malodorous subungual debris, with pain on palpation, TA, T5 , proximal clearing of nail _100? percent nails 2-5 b/l.? Assessment: * Assessment: 1.?Tinea unguium - B35.1?2.? Pain in left toe(s) - M79.675?3.?Foot drop, left - M21.372 (Primary), Chronic problem, Stable (1=3,2=4)?4.?Pain in right toe(s) - M79.674?5.?Foot drop, right foot - M21.371?6.?Unsteady gait - R26.81? Plan: * Treatment: 2.?Tinea unguium?Procedure: [id number] NAIL, 1-5 * Procedures:?Debride Nails 1-5:?Procedure:?Nail debridement performed extensively to reduce/remove overall nail length, girth, thickness, subungual debris, and necrotic tissue, by manual and electrical means through the use of a nail nipper and/or dremel, to more viable healthy nail plate or bed tissue 1-5. Silver nitrate used for any petechial bleeding as necessary. Patient chooses, no pharmaceutical tx (03437).? * Procedure Codes:?45383 MICHAEL WHITTAKER NAIL, 1-5, Modifiers: XS * Preventive Medicine:? ??Counseling:?Discussion:?-13: Office or other outpatient visit for the evaluation and management of an established patient, which required a medically appropriate history and/or examination and LOW level of DECISION MAKING for: 1 STABLE ACUTE UNCOMPLICATED PROBLEM, 2 OR MORE MINOR PROBLEMS, OR 1 STABLE CHRONIC PROBLEM, THAT POSE(S) A LOW RISK FOR MORBIDITY/MORTALITY. The visit on the day of the encounter encompassed interpreting the data and educating the patient as to the nature of their condition, treatment options available according to their individual PMH, meds, allergies, and overall health/living conditions, as well as any potential risks or complications that may occur from a failure to adhere to, and participate in, the recommended course of therapy. The discussion included a complete verbal, and/or written explanation of the examination results, any x-rays taken, the proposed diagnosis, and outline of the treatment plan. A schedule for future care needs was also explained. The patient verbalized an understanding of the instructions at this time and agreed to be an active participant in their treatment. If the patient should think of any questions or concerns after the visit, I have encouraged the patient to call the office.?Physical Therapy:?Discussed the potential short and terminal press operator benefits of physical therapy including pain relief, improved function for activity of daily life, return to exercise, increased quality of life. We discussed the usual/customary PT treatment schedule of 2-3 times per week for 4 weeks to as much as 12 weeks depending on insurance approval/coverage. We discussed various PT treatment modalities including, but not limited to, gate training, muscular stabilization, stretching, deep tissue therapeutic massage, ultrasound, TENS, iontophoresis, fluidotherapy, laser therapy, hydrotherapy, contrast ice/heat bath, and passive as well as active ROM exercises. Questions re: PT including visit amounts, rates of success, and goals were answered to the patient's satisfaction. The patient verbally confirmed the medical necessity and use of PT therapy treatment for their MSK condition, Recommend gait training and stability- pt was refeered to tehrapy last year and he said they did nothing to help him just referred him to .? * Follow Up:?6 Months * Images: * Sign off status: Completed true * Provider:?Nikki Vigil DPM Date:?2023 Generated for Porfirio casillas/Roshan/Lucía on:?12/03/2024 08:21 AM EST History and Physical Notes * HPI (History of Present Illness) Category Sub-Category Detail Notes Category Not es Painful Nails Treatments: Lamisil Oral Antifungal Pt States Last PCP Visit: Date:: 02/24/2024 Foot Pain Nature: unsteady gait/balance Location: B/L Duration: , several months Course: worse Aggravated: standing , walking Treatments: b/l AFO's Severity/Quality: moderate , severe Examination Category Sub-Category Detail Notes Category Not es Neurological SENSORY: Neurological exa m reveals intact sensorium, pain sensation normal, vibration sensation intact, pinprick sensation is normal in the lower extremities, Pt denies, anesthesia, burning, paresthesia, tingling, B/L TINEL'S COMPRESSION: Negative tarsal amy rick, pilar pedis, and medial calcaneal nerves Dermatologic SKIN FINDINGS: Orthopedic GAIT ABNORMALITY: b/l AFO , , un stable/unsteady relating occasional difficulty with balance FOOT MORPHOLOGY: Flexible, Pes Cavus structure, B/L DIGITAL DEFORMITIES: Digital contracture , PIPJ, 2-5 B/L, non-reducable to push- up test, no over, nor underlapping MUSCLE STRENGTH: Drop foot , B/L , , Generalized decrease in strength , B/L Vascular DORSALIS PEDIS PULSE: 2/4, B/L CAPILLARY REFILL: instantaneous, B/L TEMPERATURE GRADIENT: within normal limi ts POSTERIOR TIBIAL PULSE: 2/4, B/L General Examination GENERAL APPEARANCE: good att ention to hygiene, no acute distress, well developed, well nourished ORIENTED: person, place, and t emmanuel Nails NAILS are: Elongated, overg rown, dystrophic, lytic, greater than 3mm thick, discolored and friable with crumbly malodorous subungual debris, with pain on palpation, TA, T5 , proximal clearing of nail _100 percent nails 2-5 b/l
--- OUTSIDE RECORDS SUMMARY | 2024-12-03 08:21 | XMS_ITS | Continuity of Care Document ---
Author Organization [facility] Bill Medley Nathan lt Address [address] [place] [address]- Care Team Providers Care Rn Acute Dialysis Name Role Phone Kristina LY, Eugene Carter Primary Care Physician [phone] Encounter [facility] Date(s): 10/05/24 - 11/04/24 [facility] Bill Medley Adult [address] [place] [address]- Encounter Type: Triage Allergies, Adverse Reactions, Alerts [...] Given 1Result Comment: questionaire complete 2Result Comment: [facility]-[id number] 3Result Comment: [08/29/2017] [facility] [id number] 4Result Comment: [id number] Medications aspirin 81 mg oral tablet, chewable [...] Refills, Maintenance, 08/24/24 12:59:00 PM EDT,[facility], 196, cm, 06/28/24 12:55:00 EDT, Height, 141.7, kg, 05/14/24 8:24:00 EDT, Dry Weight Start Date: 08/24/24 Status: Ordered Quantity: 90.0 Unit: tablet Repeat number: 1 hydrochlorothiazide-lisinopril 25 mg-20 mg oral tablet See Instructions, TAKE 1 TABLET BY MOUTH EVERY DAY, # 90 tablet, 1 Refills, Maintenance, 08/10/24 4:22:00 PM EDT, [facility]/pharmacy #[id number], 90, TAKE 1 TABLET BY MOUTH [...] 4:00:00 PM EDT, 08/10/24 4:00:00 PM EDT, [facility]/pharmacy #[id number], Partial fill upon patient request if [...] PM EDT, [id number] Partial fill upon patient requestif the [...] Refills, Maintenance, 10/05/24 10:24:00 AM EST, Solution, [facility]/pharmacy #[id number], Partial fill uponpatient request if the [...] Refills, Maintenance, 04/02/24 10:10:00 AM EDT, Tablet, [facility]/pharmacy #[id number], Partial fill upon patient request if [...] Team Personnel Name: Bita Walker RN Position: [facility] RN Member Role: Primary Care Nurse Name: Maria Del Carmen Gordillo RN Position: [facility] RN Member Role: Primary Care Nurse Name: Yenny Morales RN Position: [facility] RN Member Role: Primary Care Nurse Name: Lyly Piña RN Position: S RN Member Role: Primary Care Nurse Name: Cathy Romo RN Position: [facility] RN Supv Member Role: Primary Care Nurse Name: Lobo Smith RN Position: [facility] RN Member Role: Primary Care Nurse Name: Eugene Acevedo MD Position: [facility] Physician - Primary Care Member Role: PCP Address: [address] [place] [phone]- Telecom: Name: Lux Hensley Position: [facility] Outreach Member Role: Lifetime Consulting Physician Name: Sharifa Shell RN Position: [facility] RN Member Role: Primary Care Nurse Name: Nia Garcia RN Position: [facility] OB RN Member Role: Primary Care Nurse Name: Magdi Kumar RN Position: [facility] SN RN Member Role: Primary Care Nurse Care Team Related Persons Name: DARIEL MAK Insurance Providers Guarantor name: CLAIRE MAK Health Plan Information #: 1 Payer: MEDICARE PART B OUTPT Member Number: NA Policy Number: NA Group Number: NA Health Plan Information #: 2 Payer: MEDEX Member Number: NA Policy Number: NA Group Number: NA
--- OUTSIDE RECORDS SUMMARY | 2024-12-03 08:21 | XMS_ITS | Continuity of Care Document ---
Author Organization [facility] Galindo Nathan lt Address [address] [place] [address]- Care Team Providers Care Clinical Support Tech Name Role Phone Kristina LY, Eugene Carter Primary Care Physician [place] [facility] [place]15[place]24 - 11/14/24 [facility] Bill Cannonley Adult [address] [place] [address]- Encounter Type: Triage Allergies, Adverse Reactions, Alerts [...] Given 1Result Comment: questionaire complete 2Result Comment: [facility]-[id number] 3Result Comment: [08/29/2017] [facility] [id number] 4Result Comment: [id number] Medications aspirin 81 mg oral tablet, chewable [...] Refills, Maintenance, 08/24/24 12:59:00 PM EDT,[facility], 196, cm, 06/28/24 12:55:00 EDT, Height, 141.7, kg, 05/14/24 8:24:00 EDT, Dry Weight Start Date: 08/24/24 Status: Ordered Quantity: 90.0 Unit: tablet Repeat number: 1 hydrochlorothiazide-lisinopril 25 mg-20 mg oral tablet See Instructions, TAKE 1 TABLET BY MOUTH EVERY DAY, # 90 tablet, 1 Refills, Maintenance, 08/10/24 4:22:00 PM EDT, [facility]/pharmacy #[id number], 90, TAKE 1 TABLET BY [...] 6:15:00 PM EDT, Route to Pharmacy Electronically, [facility]/pharmacy #[id number], Partial fill upon patient requestif [...] Refills, Maintenance, 10/05/24 10:24:00 AM EST, Solution, [facility]/pharmacy #[id number], Partial fill uponpatient request if [...] Refills, Maintenance, 04/02/24 10:10:00 AM EDT, Tablet, [facility]/pharmacy #[id number], Partial fill upon patient request [...] Team Personnel Name: Bita Walker RN Position: [facility] RN Member Role: Primary Care Nurse Name: Maria Del Carmen Gordillo RN Position: [facility] RN Member Role: Primary Care Nurse Name: Yenny Morales RN Position: [facility] RN Member Role: Primary Care Nurse Name: Lyly Piña RN Position: [facility] RN Member Role: Primary Care Nurse Name: Cathy Romo RN Position: [facility] RN Supv Member Role: Primary Care Nurse Name: Lobo Smith RN Position: [facility] RN Member Role: Primary Care Nurse Name: Eugene Acevedo MD Position: [facility] Physician - Primary Care Member Role: PCP Address: [address] [place] [phone]- Telecom: Name: Lux Hensley Position: [facility] Outreach Member Role: Lifetime Consulting Physician Name: Sharifa Shell RN Position: [facility] RN Member Role: Primary Care Nurse Name: Nia Garcia RN Position: [facility] OB RN Member Role: Primary Care Nurse Name: Magdi Kumar RN Position: [facility] SN RN Member Role: Primary Care Nurse Care Team Related Persons Name: DARIEL MAK Insurance Providers Guarantor name: CLAIRE JONNYANNALEE Health Plan Information #: 1 Payer: MEDICARE PART B OUTPT Member Number: NA Policy Number: NA Group Number: NA Health Plan Information #: 2 Payer: MEDEX Member Number: NA Policy Number: NA Group Number: NA
--- OUTSIDE RECORDS SUMMARY | 2024-12-03 08:21 | XMS_ITS ---
Author Organization [facility] Johnnie maryjo [place] Address [address] [place] [address] Care Team Providers Care Shell Maker Lockstitch Name Role Phone Eugene Acevedo MD Primary Care Provider Unava ilable Black, Nikki Unavailable [phone] Allergies No Known Allergies REASON FOR VISIT Painful Nail(s) aggrevated by shoes and causing difficulty standing/walking., Foot pain, At Risk Footcare, Toe Irritation Medications Medication SIG (Take, Route, Frequency, Duration) [...] a day for 30 days 03/30/2018 Not-Taki ng LORazepam 2 MG 1 tablet at bedtime as needed Orally Once a day Active Physical Therapy . . . 2-3x/week for 3- 4 weeks Active Lisinopril 20 MG 1 tablet Orally [...] Problem Status W/U Status Risk Notes Problem Type II diabetes mellitus without complication (200936658) Type 2 diabetes mellitus without complications (E11.9) Active confirmed Problem Acquired hammer toe of right foot (292681219201726 5) Other hammer toe(s) (acquired), right foot (M20.41) Active confirmed Problem Acquired hammer toe of left foot (479197468128571 3) Other hammer toe(s) (acquired), left foot (M20.42) Active confirmed Problem Essential hypertension (78518943) Essential hypertension (I10) Active confirmed Vital Signs Height 6ft 5in in 09/17/2024 Weight 308 lbs 09/17/2024 BMI 36.52 kg/m2 09/17/2024 Blood pressure systolic 111 mm Hg 09/17/20 24 Blood pressure diastolic 71 mm Hg 024 Procedures Procedure Date Ordered Date Performed Result Body Sit e 19203-UHLTNUP NAIL, 1-5 09/17/2024 N/A Encounters Encounter Location Date Provider Diagnosis [facility] [address] [place] [address] 09/17/2024 Nikki Black Tinea unguium B35.1 ; [...] Treatment Notes Treatment Clinical Notes Section Notes 09/17/2024 Tinea unguium (ICD-10 - B35.1) 09/17/2024 Foot drop, left (ICD-10 - M21.372) 09/17/2024 Pain in left toe(s) (ICD-10 - M79.675) 09/17/2024 Pain in right toe(s) (ICD-10 - M79.674) 09/17/2024 Foot drop, right foot (ICD-10 - M21.371) 09/17/2024 Unsteady gait (ICD-10 - R26.81) 09/17/2024 Type 2 diabetes mellitus without complications (ICD-10 - E11.9) 09/17/2024 Other hammer toe(s) (acquired), right foot (ICD-10 - M20.41) Patient Educated with: DIABETIC FOOT CARE INSTRUCTIONS.p df (DIABETIC FOOT CARE INSTRUCTIONS.p df) 09/17/2024 Other hammer toe(s) (acquired), left foot (ICD-10 - M20.42) Plan Of Treatment Medication Medication Name Sig Start Date Stop Date Notes Extra Depth Orthopedic Shoes (1 Pair) with Customized Heat Molded Multidensity Innersoles (3 Pair) as directed Dx: NIDDM (E11.9), Hammertoe Foot Deformity (M20.41,M20.42), Preulcerative Skin Lesion(s) (L85.1) 09/17/2024 Physical Therapy . . . 2-3x/week for 3-4 weeks Treatment Notes Assessment Notes Other hammer toe(s) (acquired), right fo ot Patient Educated with: DIABETIC FOOT CARE INSTRUCTIONS.pdf (DIABETIC FOOT CARE INSTRUCTIONS.pdf) Pending Test Test Name Order Date 00490-RHIKCIK NAIL, 1-5 09/17/2024 Next Appt Details Follow Up: 2 Months, Reason: Provider Name:Nikki Vigil , 03/18/2025 01:00:00 PM, [address] [place] [address], [place], [address], Procedure Notes * Category Sub-Category Detail Notes [...] as necessary. Patient chooses, no pharmaceutical tx (42547) Progress Notes * Nicolas MAK DDOB:[birth year] (68 yo M)Acc No.[id number]:09/17/2024 Progress Note Patient:Nicolas BAH Provider:?Nikki Vigil DPM :1955???Age:68 Y???Sex:Male Dung e:09/17/2024 Address:[address] [place] [address], [facility] Pcp:Eugene Acevedo MD Subjective: * Chief Complaints: * ???Painful Nail(s) aggrevate d by shoes and causing difficulty standing/walking.Foot painAt Risk FootcareToe Irritation * HPI: ???Painful Nails:?Pt States Last PCP Visit:?Date:?09/13/2024 ?Treatments:?Lamisil Oral Antifungal?-finished 03/2024.?Foot Pain:?Nature:?unsteady gait/balance.?Location:?B/L.?Duration:?, several months.?Course:?worse.?Aggravated:?standing , walking.?Treatments:?b/l AFO's.?Severity/Quality:?moderate , severe.?Misc:?Pt did not go to PT due to episodes with tachycardia.?Toe pain:?Location:?B/L feet.?Duration:?several years.?Course:?worse.?Aggravated by:?shoes, any pressure.?Treatments:?change in shoes.? * ROS:?General/Constitutional:?Nausea?denies.?Vomiting?denies.?Hunger Thirst?denies.?Loss appetite?denies.?Chills?denies.?Fatigue?denies.?Fever?denies.?Night Sweats?denies.?Unexplained weight loss?denies.?Unexplained [...] removal - Throat 06/2023Neck Operation- pinched nerve 03/01/24cyst taken off vocal cord 02/17/24 * Hospitalization/Major Diagno stic Procedure:?MAXIM/ [facility] 09/18 [...] month (2 points) ?Points?2 ?Interpretation?Negative ???Miscellaneous:?Caffeine: yes, frequency:,22oz of coffee a day. ?Children: no. ?Exercise: no, Golf, billiards, stretching, walking. ?Marital status: . 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 * Medications:?TakingAtorvasta tin Calcium 20 MG Tablet 1 tablet Orally Once a day Lisinopril 20 MG Tablet 1 tablet Orally Once a day LORazepam 2 MG Tablet 1 tablet at bedtime as needed Orally Once a day Physical Therapy . . . . 2-3x/week Taking Atorvastatin Calcium 20 MG Tablet 1 tablet Orally Once a day Taking Lisinopril 20 MG Tablet 1 tablet Orally Once a day Taking LORazepam 2 MG Tablet 1 tablet at bedtime as needed Orally Once a day Taking Physical Therapy . . . . 2-3x/week Not-Taking/PRNAmoxicillin 500 MG Capsule 1 capsule Orally Terbinafine HCl 250 MG Tablet 1 tablet Orally Once a day for 7 days then stop for 3 weeks repeat cycle Ciclopirox Olamine 0.77 % Cream 1 application to affected area Externally Twice a day Medication List reviewed and reconciled with the patientNot-Taking/PRN Amoxicillin 500 MG Capsule 1 capsule Orally Not-Taking/PRN Terbinafine HCl 250 MG Tablet 1 tablet Orally Once a day for 7 days then stop for 3 weeks repeat cycle Not-Taking/PRN Ciclopirox Olamine 0.77 % Cream 1 application to affected area Externally Twice a day Medication List reviewed and reconciled with the patient * Allergies:?N.K.D.A.yes[Aller gies Verified] Objective: * Vitals:?Ht: 6ft 5in, Wt:308, BMI:36.52, Shoe size: 14 extra W, BP:111/71mm Hg, Ht-cm: 195.58 cm, Wt-k.71 kg. * ???Past Orders: ???Lab:HEMOGLOBIN A1C (GLYCO HEMOGLOBIN) (Order Date - 09/17/2024) (Collection Date & Time - 09/17/2024 01:22 PM) ? Value Reference Range ?TOTAL HEMOGLOBIN (HGBA1C) 6.5 * Examination: ???General Examination: ?GENERAL APPEARANCE:?good attention to hygiene, no acute distress, well developed, well nourished.?ORIENTED:?person, place, and time.?FOOT EXAM:?Footwear Evaluation?Neurological: ?SENSORY:?Neurological exam reveals intact sensorium, pain sensation normal, vibration sensation intact, pinprick sensation is normal in the lower extremities, Pt denies, anesthesia, burning, paresthesia, tingling, B/L.?TINEL'S COMPRESSION:?Negative tarsal tunnel, pilar pedis, and medial calcaneal nerves.?Vascular: ?DORSALIS PEDIS PULSE:?2/4, B/L.?POSTERIOR TIBIAL PULSE:?2/4, B/L.?CAPILLARY REFILL:?instantaneous, B/L.?TEMPERATURE GRADIENT:?within normal limits.?Orthopedic: ?MUSCLE STRENGTH:?Drop foot , B/L , , Generalized decrease in strength , B/L.?GAIT ABNORMALITY:?b/l AFO , , unstable/unsteady relating occasional difficulty with balance.?FOOT MORPHOLOGY:?Flexible, Pes Cavus structure, B/L.?DIGITAL DEFORMITIES:?Digital contracture, PIPJ, 2-5 B/L, non-reducable to push-up test, no over, nor underlapping , Digital contracture, PIPJ, 2-5 B/L, incompl-reducible to push-up test, no over, nor underlapping,?there is?evidence of shoe producing skin irritation.?FOOTWEAR:?worn, non-supportive, shoe gear properties exacerbate patient's foot/toe deformity.?Nails: ?NAILS are:?Elongated, overgrown, dystrophic, lytic, greater than 3mm thick, discolored and friable with crumbly malodorous subungual debris, with pain on palpation, TA, T5?.?Ophthalmology Referral: ?DIABETES EYE EXAM? Assessment: * Assessment: 1.?Tinea unguium - B35.1???2 .?Pain in left toe(s) - M79.675???3.?Foot drop, left - M21.372 (Primary)???Specify :Chronic problem, Stable (1=3,2=4)???4.?Pain in right toe(s) - M79.674???5.?Foot drop, right foot - M21.371???6.?Unsteady gait - R26.81???7.?Type 2 diabetes mellitus without complications - E11.9???8.?Other hammer toe(s) (acquired), right foot - M20.41???Specify :Chronic problem, Worse (4),Rx Management (4)???9.?Other hammer toe(s) (acquired), left foot - M20.42???Specify :Chronic problem, Worse (4),Rx Management (4)??? Plan: * Treatment: 2.?Tinea unguium?Procedure: 83267-MRDGJNT NAIL, 1-5 3.?Type 2 diabetes mellitus without complications? Start Extra Depth Orthopedic Shoes (1 Pair) with Customized Heat Molded Multidensity Innersoles (3 Pair), as directed, Dx: NIDDM (E11.9), Hammertoe Foot Deformity (M20.41,M20.42), Preulcerative Skin Lesion(s) (L85.1), 1, Refills 0.?? 4.?Other hammer toe(s) (acqu ired), right foot? Notes: Patient Educated with: DIABETIC FOOT CARE INSTRUCTIONS.pdf (DIABETIC FOOT CARE INSTRUCTIONS.pdf)?? * Procedures:?Debride Nails 1-5:?Procedure:?Nail debridement performed extensively to reduce/remove overall nail length, girth, thickness, subungual debris, and necrotic tissue, by manual and electrical means through the use of a nail nipper and/or dremel, to more viable healthy nail plate or bed tissue 1-5. Silver nitrate used for any petechial bleeding as necessary. Patient chooses, no pharmaceutical tx (69847).? * Procedure Codes:?69110 DEBRI DE NAIL, 1-5, Modifiers: XS * Preventive Medicine:? ??Counseling:?Discussion:?-14: Office or other outpatient visit for the evaluation and management of an established patient, which required a medically appropriate history and/or examination and MODERATE level of DECISION MAKING for: 1 OR MORE CHRONIC PROBLEM(S) THATS WORSENING, 2 STABLE CHRONIC PROBLEMS, A NEWLY DIAGNOSED PROBLEM WITH UNCERTAIN PROGNOSIS, AN ACUTE COMPLICATED INJURY WITH MULTIPLE TREATMENT OPTIONS, OR AN ACUTE PROBLEM WITH ACCOMPANYING SYSTEMIC SYMPTOMS, THAT POSE(S) A MODERATE RISK OF MORBIDITY. THIS CONDITION MAY ALSO INCLUDE RX DRUG MANAGEMENT, OR A DECISON FOR MINOR SURGERY. The visit on the day of the [...] have encouraged the patient to call the office.?BioMech.:?I discussed the Pts foot biomechanics with them and how it relates to their problem AGAIN.Pt agrees to therapy. He would like to present to a place in [place] that specializes with b/l drop feet..?Diabetic Footcare:?The patient was advised against future self nail/callus care due to inherent risks for infection, loss of limb/life given diabetes.?Digital Treatment:?HT- I explained to the patient the possible etiologies of Hammertoes, including genetics/foot type/shoegear/activity level/exercise routine and the risks/benefits of all the different treatment options for their pain including: No treatment at all, Rest, Ice, New/supportive/wider/deeper Shoegear, Digital Padding/Strapping/Taping/Bracing/Gel protective sleeves, Foot/Ankle AFO Bracing, Stretching exercises, Deep Tissue Massage, Arch support/shoe inserts with splay metatarsal padding, and Custom orthoses. I insisted that any digital devices be removed daily and not worn overnight for safety. The patient is to carefully examine the toes daily for any skin irritation while using any splinting or padding device. The advantages and disadvantages of each option were discussed and the patients questions re: shoegear, padding, custom vs prefabricated inserts, activity level, and consistency in home treatment regimens for optimal success were answered to their verbally confirmed satisfaction.?Physical Therapy:?Recommend gait training and stability.?Shoe Gear Counseling:?SHOE Rx - The patient was counseled in great detail on their muscoloskeletal foot and toe deformities which coincided with the dermatological presentations visualized on exam. We discussed how their deformities put the integrity of their feet at risk for potential pedal complications which makes the accomidative diabetic shoes and cutomizable inserts medically necessary. We discussed the different shoe and insert treatment types and options, as well as the important advantages for adhering to regularly wearing these accomidative devices daily. The patient was made aware of the fact that a failure to abide by these recommedations may be deleterious to their foot health as they are able to prevent many pedal complications such as skin irritation, skin ulceration, infection, and even loss of toe/foot/leg/or life. Time was also spent with the patient dispensing and discussing proper diabetic footcare techniques including daily skin moisturization, daily foot inspection for any interruption in skin integrity including open lesions, or sign of infection such as redness/malodor/drainage/swelling. Also discussed and recommended were procedures regarding daily shoe inspection for the presence of internal foreign bodies as well as any visualized irregular shoe or insert wear. Patient questions re: shoes, inserts, and self foot inspections were answered to their satisfaction as the patient verbally confirmed a full understanding of the above information. A Rx for Extra Depth Orthopedic Shoes with 3 pair of custom heat-molded inserts was dispensed.? * Follow Up:?2 Months * Images: * Sign off status: Completed true * Provider:?Nikki Vigil DPM Date:?2023 Generated for Porfirio casillas/Roshan/Lucía on:?12/03/2024 08:20 AM EST History and Physical Notes * HPI (History of Present Illness) Category Sub-Category Detail Notes Category Not es Toe pain Location: B/L feet Duration: several years Course: worse Aggravated by: shoes, any pressure Treatments: change in shoes Painful Nails Treatments: Lamisil Oral Antifungal -fi nished 03/2024 Pt States Last PCP Visit: Date:: 09/13/2024 Foot Pain Nature: unsteady gait/balance Location: B/L Duration: , several months Course: worse Aggravated: standing , walking Treatments: b/l AFO's Severity/Quality: moderate , severe Misc: Pt did not go to PT due to episodes with tachycardia Examination Category Sub-Category Detail Notes Category Not [...] FOOT MORPHOLOGY: Flexible, Pes Cavus structure, B/L FOOTWEAR: worn, non-supportive , shoe gear properties exacerbate patient's foot/toe deformity DIGITAL DEFORMITIES: Digital contracture , PIPJ, 2-5 B/L, non-reducable to push- up test, no over, nor underlapping , Digital contracture, PIPJ, 2-5 B/L, incompl-reducible to push-up test, no over, nor underlapping, there is evidence of shoe producing skin irritation MUSCLE STRENGTH: Drop foot , B/L , , Generalized decrease in strength , B/L Vascular DORSALIS PEDIS PULSE: 2/4, B/L CAPILLARY REFILL: instantaneous, B/L TEMPERATURE GRADIENT: within normal limi ts POSTERIOR TIBIAL PULSE: 2/4, B/L General Examination GENERAL APPEARANCE: good att ention to hygiene, no acute distress, well developed, well nourished FOOT EXAM: Lower Extremity Neurological Exa m performed:: Yes ORIENTED: person, place, and t emmanuel Footwear Evaluation Footwear Evaluation performe d:: Yes Ophthalmology Referral DIABETES EYE EXAM Eye Exa m not performed:: No reason specified Nails NAILS are: Elongated, overg rown, dystrophic, lytic, greater than 3mm thick, discolored and friable with crumbly malodorous subungual debris, with pain on palpation, TA, T5
--- NOTE | 2024-12-03 08:22 | ECG_ITS ---
Test Reason : abd pain Blood Pressure : / mmHG Vent. Rate : 092 BPM Atrial Rate : 092 BPM P-R Int : 166 ms QRS Dur : 098 ms QT Int : 372 ms P-R-T Axes : 049 000 013 degrees QTc Int : 460 ms Normal sinus rhythm Inferior infarct , age undetermined Abnormal ECG No previous ECGs available Referred By: Conchita Wolfe Electronically Signed By:MICHAEL ESTRADA
--- OUTSIDE RECORDS SUMMARY | 2024-12-03 08:22 | XMS_ITS | Data Portability ---
Author Organization [place] [facility] Address [address] [place] [id number] Care Team Providers Care Special Makeup Fx Artist Instructor Name Role Phone JOY PEREIRA Primary Care Provider [phone] Assessment Encounter Date Assessment Date Assessment LastModified by Organization Details LastModified Time 07/14/2022 07/14/2022 Time On Scene with Patient: 00:49:57 66 YO M patient establishing care with . He complains of mild cough, subjective fever, nasal congestion, and muscle ache x 1-2 days. He took a Covid test with negative finding. He is Tylenol as needed and other OTC medication to assist with symptoms. PATIENT HAD TEST AVAILABLE FOR VIEWING ON TABLE AND IT WAS NOT NEGATIVE IT WAS POSITIVE. VSS Exam: Patient sitting in recliner, well appearing, well nourished, NAD. HEENT: Normocephalic, atraumatic, PERRLA 4 mm, EOMI, mauro TM clear, nares patent, no discharge, tonsils mildly enlarged, non erythematous Resp: BLCTA, no use of accessory muscles, completing sentences CV: S1,S2, RRR, no murmur, gallops, or rubs Musc: Moves all extremities. Extremity: No edema, cyanosis, or palpable cords. Skin: Dry, warm and intact. Psych: Pleasant, alert and oriented x 3. Test: Rapid Covid test Diagnosis: Covid 19 positive Plan: -Patient Covid 19 positive. -Physical assessment done with no abnormal finding. -VSS -Discussed with patient seeking ER care with temp > 104, chest pain, sob, -Encouraged to cont. to follow CDC guidelines. The patient is advised to make an appt with PCP in 3-5 days to discuss ongoing symptoms/ further management. The patient is also advised to go to the ED immediately for any worsening symptoms. The patient understood and agreed with this plan. The patient was given discharge instructions and all questions were answered prior to DH team departure. [email or web address] Not available 07/14/2022 13:28:48 Plan of Treatment Reminders Order Date Submit Date Provider Last Modified By Organization Details Last Modified Time Details Appointments None recorded. Lab rapid SARS CoV 2 Ag, QL IA, respiratory specimen 2021 022 more [id number] [facility], [address] [place] [address], [id number], 11:57:05 Referral None recorded. Procedures None recorded. Surgeries None recorded. Imaging None recorded. Medication Orders None recorded. Patient TargetsNo targets recorded. Patient Instructions Encounter Date Encounter Id Patient Instructions Last Modified By Organization Details Last Modified Time 07/14/2022 [id number] Inhaler Instructions Before use, you need to prime the inhaler: ? Take the cap off the mouthpiece and put the inhaler in the spacer ? Shake the inhaler for 5 seconds ? Hold the inhaler upright with 1 finger on the top of the canister, the thumb on the bottom of the inhaler, and your other hand holding the spacer ? Express a large breath ? Close lips around spacer ? Press down on the canister ? After you press down on the canister, breathe (or have your child breathe in) deeply and slowly and hold your breath for 10 seconds ? Take out of your mouth and slowly exhale ? If you were instructed to take 2 puffs of the inhaler, wait one minute before you give the second puff. Shake the inhaler again before the second puff. ? If the inhaler is a steroid medicine (also called a ? glucocorticoid? or ? corticosteroid? ), rinse out your mouth, gargle, and spit out the water Cleaning: If you use the inhaler every day, you need to clean it at least once a week. If you use less often, clean the inhaler when you see powder in or around the hole. To clean an inhaler: ? Remove the canister and cap from the mouthpiece. Do not wash the canister or put the canister under water. ? Run warm water through the mouthpiece for 30 to 60 seconds ? Shake the water off of the mouthpiece and let it air dry Clean the spacer every 1-2 weeks. First, remove the inhaler from the spacer. Wash the spacer with warm water and dishwashing soap, but do NOT rinse it. Then let it air dry. Leaving the spacer a little soapy after cleaning actually helps it work better. [email or web address] Not available 07/14/2022 11:54:03 Reason for Referral None Reported. Results Created Date Observation Date Name Description Value Unit Range Abnormal Flag Note LastModifiedBy Organization Detail LastModifiedTime 07/14/20 22 07/14/2022 rapid SARS CoV 2 Ag, QL IA, respi rator y speci men Covid-19 (ref: neg) positi ve Not Available [facility] [address] [place], [address], 07/14/2022 11:56:05 07/14/20 22 07/14/2022 rapid SARS CoV 2 Ag, QL IA, respi rator y speci men Control Visual ized/V alid Not Available [facility] [address] [place] [address] [place], [address], 07/14/2022 11:56:05 07/14/20 22 07/14/2022 rapid SARS CoV 2 Ag, QL IA, respi rator y speci men Location [facility], [address] [place] [address], [id number] Not Available [facility] [address] [place] [address] [place], [address], 07/14/2022 11:56:05 Result Notes None recorded. Procedures Surgical History Date Name Laterality Status Provider Name and Address Organization Details Recorded Time total replacement of hip completed May ORALIA Shukla [address] [place], [address], [place] [facility] 07/14/2022 11:50:29 Cholecystectomy completed Leyla Shukla NP [address] [place], [address], [place] [facility] 07/14/2022 11:50:38 Shoulder joint surgery completed Leyla Shukla NP [address] [place], [address], [place] [facility] 07/14/2022 11:50:48 lithotripsy completed May ORALIA Shukla [address], [place], [address], [place] [facility] 07/14/2022 11:51:07 catheterization completed May ORALIA Shukla [address], [place], [address], [place] [facility] 07/14/2022 11:52:09 Imaging Results None recorded. Procedure Notes None recorded. Medical Equipment None Reported. Allergies No known drug allergies Medications Name Sig Start Date Stop Date Status Note LastModified by Organization Details LastModified Time amoxicillin 500 mg capsule TAKE 4 CAPSULES BY MOUTH 1 HOUR PRIOR TO APPT 07/14 completed Not Available Not Available Not Available atorvastati n 20 mg tablet Take 1 tablet every day by oral route. active Not Available Not Available No t Available sildenafil 100 mg tablet TAKE 1 TABLET BY MOUTH EVERY DAY 1 HOUR BEFORE SEXUAL ACTIVITY active Not Available Not Available No t Available terbinafine HCl 250 mg tablet TAKE 1 TABLET BY MOUTH EVERY DAY FOR 7 DAYS THEN STOP FOR 3 WEEKS AND REPEAT active Not Available Not Available No t Available gabapentin 300 mg capsule TAKE 1 CAPSULE BY MOUTH EVERY DAY active Not Available Not Available No t Available lisinopril 20 mg-hydrochl orothiazide 25 mg tablet TAKE 1 TABLET BY MOUTH EVERY DAY active Not Available Not Available No t Available lorazepam 1 mg tablet TAKE 1 TO 2 TABLETS BY MOUTH AT BEDTIME NEEDED active Not Available Not Available No t Available dextroamphe tamine-amph etamine 5 mg tablet TAKE 1 TABLET BY MOUTH TWICE A DAY NEEDED FOR ADD active Not Available Not Available No t Available dextroamphe tamine-amph etamine ER 5 mg 24hr capsule,ext end release TAKE 1 CAPSULE BY MOUTH EVERY MORNING 07/14 completed Not Available Not Available Not Available chlorhexidi ne gluconate 0.12 % mouthwash RINSE WITH 15 ML FOR 30 SECONDS THEN EXPECTORA TE TWICE A DAY. DO NOT SWALLOW active Not Available Not Available No t Available Vitals Date Recorded Body temperature Respiratory rate Oxygen saturation Oxygen saturation in Arterial blood by Pulse oximetry Heart rate Systolic blood pressure Diastolic blood pressure Provider Name and Address Organization Details Last Updated DateTime 2 98.3 [degF] 16 /min 94 % 94 % 86 /min 132 mm[Hg] 82 mm[Hg] Not Available [facility] 11:50:19 Social History Question Answer Notes LastModified by Organizat ion Details LastModified Time Tobacco Smoking Status Former Smoker May Vazquez, ORALIA [address], [place], [address], [place] [facility] 07/14/2022 11:46:54 Do You Have An Advance Directive? No [email or web address] Information not available 07/14/2022 What Is Your Level Of Alcohol Consumption? Occasional [email or web address] Information not available 07/14/2022 Is Blood Transfusion Acceptable In An Emergency? Yes [email or web address] Information not available 07/14/2022 What Is Your Code Status? Full Code [email or web address] Information not available 07/14/2022 When Did You Quit Smoking? 16+yearssincel astcigarette [email or web address] Information not available 07/14/2022 Within The Past 12 Months, Has It Happened That The Food You Bought Just Didn't Last And You Didn't Have Money To Get More. No [email or web address] Information not available 07/14/2022 Within The Past 12 Months, Have You Worried That Your Food Would Run Out Before You Got Money To Buy More. No [email or web address] Information not available 07/14/2022 Fall Risk: Do You Feel Unsteady When Standing Or Walking? No [email or web address] Information not available 07/14/2022 We Know That How And When People Interact With Friends And Family Can Be Very Different From Person To Person. How Often Do You Have The Opportunity To See Or Talk To People That You Care About And Feel Close To? (Ex: Talking To Friends On The Phone Or Visiting Friends Or Family Or Going To Judaism Or Club Meetings) 5 Or More Times Per Week [email or web address] Information not available 07/14/2022 Excessive Alcohol Or Drug Use No [email or web address] Information not available 07/14/2022 Does This Patient Have A PCP? Yes [email or web address] Information not available 07/14/2022 Has The Patient Seen Their PCP In The Past 6 Months? Yes [email or web address] Information not available 07/14/2022 Is This Patient In Hospice? No [email or web address] Information not available 07/14/2022 We Know From Many Of Our Patients That Covering All Of Their Costs Can Be Difficult At Times. This Can Cause Stress And Impact Health. In The Past Year, Have You Been Unable To Get Any Of The Following When It Was Really Needed? No [email or web address] Information not available 07/14/2022 What Is Your Housing Situation Today? I Have Housing [email or web address] Information not available 07/14/2022 Would You Like Help Connecting To Resources? None [email or web address] Information not available 07/14/2022 Do You Have A Medical Power Of Supervisor Public Health Nursing? No [email or web address] Information not available 07/14/2022 Do You Have A Patient Advocate? No [email or web address] Information not available 07/14/2022 At What Age Did You Start Smoking Tobacco? 15 [email or web address] Information not available 07/14/2022 Do You Use Any Illicit Or Recreational Drugs? No [email or web address] Information not available 07/14/2022 How Many Years Have You Smoked Tobacco? 30 [email or web address] Information not available 07/14/2022 Sex: Unknown Functional Status None recorded. Mental Status None recorded. Family History Nothing Reported. Medical History Condition Response Coronary Artery Disease Y Parkinson's Disease N COPD N Depression N Hypothyroidism N A-fib N Diabetes N CHF N Cancer N Stroke N Dementia N Asthma N High Cholesterol Y Rheumatoid Arthritis N Pulmonary Embolism N Hypertension Y Osteoporosis N Kidney Disease N Past Encounters Encounter ID Performer Location Encounter Start Date Encounter Closed Date Diagnosis/Indication Diagnosis SNOMED-CT Code Diagnosis ICD10 Code Diagnosis Note [id number] May ORALIA Shukla [facility] [address] [facility] [place] [address] 07/14/2022 11:42:04 07/15/2022 09:17:18 Cough 99168786 R05.1 Health Concerns Section Related Observation LastModified by Organization Detai ls LastModified Time None Recorded Concern Status LastModified by Organization Details LastModified Time None Recorded Advance Directives Directive N: Payers Encounter Date Sequence Insurance Name Policy Number Policy Garrido Covered Member ID Garrido Member ID Guarantor Name 07/14/2022 1 [place] [employer] Nicolas Cardona [id number] Nicolas Cardona 07/14/2022 2 [place] Nicolas Cardona [id number] Nicolas Cardona Notes Date Note Type Note Provider Name and Address Organization Details Recorded Time 07/14/2022 text/html 66 YO M patient establishing care with . He complains of mild cough, subjective fever, nasal congestion, and muscle ache x 1-2 days. He took a Covid test with negative finding. Leyla Shukla NP [address], [place], [address], [place] [facility] 07/14/2022 13:28:59
[2024-12-03 08:46] LABS: MANUAL DIFF FLAG NO
[2024-12-03 08:48] LABS: Basophils Percent Auto 0.3 % (0-2); Hematocrit 45.6 % (42.0-52.0); Hemoglobin 15.7 g/dl (14.0-18.0); Imm Gran Abs Auto 0.01 X10*3/uL (0.00-0.03); Imm Gran Pct Auto 0.3 % (0.0-0.4); Lymphocytes Absolute Auto 0.3 X10*3/uL (1.2-4.9); Lymphocytes Percent Auto 10.1 % (20-40); Mean Corpuscular HGB Conc 34.4 g/dl (31.0-36.0); Mean Corpuscular Hemoglobin 29.2 pg (27.0-33.0); Mean Corpuscular Volume 84.8 fL (80.0-98.0); Mean Platelet Volume 8.9 fL (9.4-12.4); Monocytes Absolute Auto 0.3 X10*3/uL (0.1-1.2); Monocytes Percent Auto 7.9 % (2-11); Neutrophils Absolute Auto 2.6 x10*3/uL (2.0-8.3); Neutrophils Percent Auto 81.4 % (45-73); Platelet Count 151 X10*3/uL (160-400); Red Blood Count 5.38 X10*6/uL (4.60-5.80); Red Cell Distribution Width 13.3 % (11.0-16.0); White Blood Count 3.2 X10*3/uL (4.8-10.8)
--- NOTE | 2024-12-03 09:06 | PC.NURSE ---
Pt BIBA from home for ? kidney stones, pt reports right lower abdominal pain and Hx kindey stones in past, pt reports s/s similar to last time he had them. Pt took pain medication prior to arrival, unsure of name. Pt reports pain 06/06. Hx gallbladder removal. 20g IV placed right hand. Labs obtained.
[2024-12-03 09:21] LABS: Alanine Aminotransferase 97 U/L (0-40); Albumin Level 3.8 g/dL (3.5-5.0); Alkaline Phosphatase 82 U/L (39-117); Anion Gap 13 (12-20); Aspartate Amino Transferase 115 U/L (5-37); Bilirubin Direct 0.4 mg/dL (0.0-0.5); Bilirubin Total 0.8 mg/dL (0.0-1.0); Blood Urea Nitrogen 38 mg/dL (9-16); Calcium 8.1 mg/dL (8.4-10.2); Carbon Dioxide 19 mmol/L (22-29); Chloride 105 mmol/L (96-108); Creatinine Clr Calc Pharmacy 88.3; Estimated Glomerular Filt Rate 60; Glucose Random 147 mg/dL (60-115); Lipase 38 U/L (8-78); Magnesium 1.8 mg/dL (1.6-2.6); Potassium 3.7 mmol/L (3.3-5.1); Sodium 133 mmol/L (135-145); Total Protein 6.8 g/dL (6.5-8.0)
[2024-12-03 09:26] LABS: Influenza A PCR NEGATIVE (Negative); Influenza B PCR NEGATIVE (Negative); Resp Syncy Virus RNA Qual PCR NEGATIVE (Negative); SARS COV2 PCR INHOUSE NEGATIVE (Negative)
[2024-12-03 09:29] LABS: Troponin-I High Sensitivity < 2.7 ng/L (<3.5-35.0)
[2024-12-03 09:33] VITALS: RESP 16
[2024-12-03] MEDS: Morphine Sulfate 4 MG/ML CARTRIDGE IVPUSH (09:33)
[2024-12-03] MEDS: ondansetron HCL 4 MG/2 ML VIAL IVPUSH (09:33)
[2024-12-03 11:47] VITALS: BP 111/63; PULSE 85; RESP 14; O2SAT 97
[2024-12-03] MEDS: 0.9 % Sodium Chloride 1,000 ML 999 ML IV (11:58)
--- NOTE | 2024-12-03 12:41 | PC.NURSE ---
Patient voided 200mL, post void BS was 27mL.
[2024-12-03 12:44] LABS: Appearance Urine Clear; Color Urine Dark Yellow; Glucose Urine UA Negative (Negative); Leukocyte Esterase Urine Negative (Negative); Nitrite Urine Negative (Negative); Specific Gravity - Urine >= 1.030 (1.005-1.025); UMIC TRIGGER UACC YES; Urine Blood Negative (Negative); Urine Ketones Negative (Negative); Urine Protein 30 (1+) mg/dL (Neg-Trace)
[2024-12-03 12:51] LABS: Bacteria Urine None Seen (None Seen); RBC Urine 0-2 /HPF (0-2); Squamous Epithelial Cell Urine 0-2 /HPF (0-2); WBC Urine 0-5 /HPF (0-5)
[2024-12-03 12:55] LABS: Troponin-I High Sensitivity < 2.7 ng/L (<3.5-35.0)
[2024-12-03 13:57] VITALS: BP 111/63; PULSE 85; RESP 14; TEMP 36.7; O2SAT 97
== END 2024-12-03 13:57 | disposition home or self-care (01) ==
PROVIDERS: Physician Assistant Medical; Emergency Provider Emergency Medicine Emergency Medical Services; PCP Family Medicine
DX: R10.9 Unspecified abdominal pain (principal); R11.2 Nausea with vomiting, unspecified; Z87.442 Personal history of urinary calculi; E11.9 Type 2 diabetes mellitus without complications; I10 Essential (primary) hypertension; Z03.818 Encounter for observation for suspected exposure to other biological agents ruled out
CPT/HCPCS: 0241U; 36415; 74176; 80048; 80076; 81001; 83690; 83735; 84484; 85025; 93005; 96361; 96374; 96375; 99284; 99285; J2270; J2405

== ENCOUNTER → 2024-12-03 08:21 | Outpatient (BNV) | payer MEDICARE, SELFPAY | PROVIDERS: Emergency Provider Emergency Medicine Emergency Medical Services; PCP Family Medicine; Visit Provider Radiology Diagnostic Radiology | DX: R10.813 Right lower quadrant abdominal tenderness (principal); K59.00 Constipation, unspecified; K57.90 Diverticulosis of intestine, part unspecified, without perforation or abscess without bleeding | CPT/HCPCS: 74176 ==

== ENCOUNTER → 2024-12-03 08:22 | Outpatient (BNV) | payer MEDICARE, SELFPAY | PROVIDERS: Emergency Provider Emergency Medicine Emergency Medical Services; PCP Family Medicine; Visit Provider Internal Medicine | DX: R94.31 Abnormal electrocardiogram [ECG] [EKG] (principal); R10.9 Unspecified abdominal pain | CPT/HCPCS: 93010 ==